=== PATIENT | female | born 1955 | race American Indian/Alaskan Native ===

== ENCOUNTER 2019-10-30 13:06 | Inpatient (IN) | payer OTHER ==
[2019-10-30] MEDS ORDERED: SODIUM CHLORIDE 0.9% 1000 ML IV SOLN IV ONE (15:50)
[2019-10-30] MEDS ORDERED: CEFEPIME/NS 2 GM/100 ML 2 GM/100 ML BAG IV ONE (15:52)
--- NOTE | 2019-10-30 15:52 | Emergency Department Report ---
ED Fever HPI - General Chief Complaint: Weakness Stated Complaint: FLU SX Time Seen by Provider: 10/30/19 15:46 Source: patient, EMS Exam Limitations: no limitations - History of Present Illness Initial Comments: Patient is a 64-year-old female that presents emergency room with complaints of body aches, fever, flulike symptoms, fatigue and malaise 3 days. Patient states her symptoms are worsening. Patient states that she feels weak. Patient states she did not get a flu shot this year. Patient states she has a cough but is nonproductive. Timing/Duration: constant Fever Severity/Quality: subjective Fever Therapy [employer]: Ibuprofen, Tylenol Associated Symptoms: cough, muscle aches, shortness of breath, weakness. denies: abdominal pain, chest pain, confusion, diaphoresis, nausea/vomiting, rash, stiff neck, syncope ED Review of Systems ROS: Stated complaint: FLU SX Other details as noted in HPI Constitutional: chills, fever, malaise, weakness Eyes: denies: eye pain, eye discharge, vision change ENT: congestion. denies: ear pain, throat pain Respiratory: cough. denies: shortness of breath, wheezing Cardiovascular: denies: chest pain, palpitations Endocrine: no symptoms reported Gastrointestinal: denies: abdominal pain, nausea, diarrhea Genitourinary: denies: urgency, dysuria, discharge Musculoskeletal: denies: back pain, joint swelling, arthralgia Skin: denies: rash, lesions Neurological: denies: headache, weakness, paresthesias Psychiatric: denies: anxiety, depression Hematological/Lymphatic: denies: easy bleeding, easy bruising ED Past Medical Hx - Past Medical History Previous Medical History?: No - Surgical History Past Surgical History?: No - Family History Family history: no significant - Social History Smoking Status: Current Every Day Smoker Substance Use Type: None ED Physical Exam - General Limitations: No Limitations General appearance: alert, in no apparent distress - Head Head exam: Present: atraumatic, normocephalic - Eye Eye exam: Present: normal appearance - ENT ENT exam: Present: mucous membranes moist - Neck Neck exam: Present: normal inspection - Respiratory Respiratory exam: Present: rhonchi - Cardiovascular Cardiovascular Exam: Present: regular rate, normal rhythm. Absent: systolic murmur, diastolic murmur, rubs, gallop - GI/Abdominal GI/Abdominal exam: Present: soft, normal bowel sounds - Extremities Exam Extremities exam: Present: normal inspection - Back Exam Back exam: Present: normal inspection - Neurological Exam Neurological exam: Present: alert, oriented X3 - Psychiatric Psychiatric exam: Present: normal affect, normal mood - Skin Skin exam: Present: warm, dry, intact, normal color. Absent: rash ED Course Vital Signs 10/30/19 10/30/19 10/30/19 15:28 15:46 18:18 Temperature 101.8 F H 101.6 F H Pulse Rate 99 H 82 Respiratory 34 H 24 22 Rate Blood Pressure Blood Pressure 99/64 112/64 [Right] O2 Sat by Pulse 94 94 94 Oximetry 10/30/19 10/30/19 10/30/19 19:15 20:15 20:30 Temperature 100.4 F H Pulse Rate 81 80 82 Respiratory 30 H 20 30 H Rate Blood Pressure Blood Pressure 129/81 127/70 132/65 [Right] O2 Sat by Pulse 90 91 95 Oximetry 10/30/19 10/30/19 10/30/19 20:47 21:00 21:16 Temperature Pulse Rate 96 H 78 83 Respiratory 35 H 32 H 34 H Rate Blood Pressure 126/63 126/63 Blood Pressure [Right] O2 Sat by Pulse 96 96 98 Oximetry 10/30/19 10/30/19 10/30/19 21:30 21:46 22:00 Temperature Pulse Rate 78 83 79 Respiratory 33 H 40 H 33 H Rate Blood Pressure 126/63 126/63 122/65 Blood Pressure [Right] O2 Sat by Pulse 95 94 93 Oximetry 10/30/19 10/30/19 10/30/19 22:16 22:30 22:46 Temperature Pulse Rate 78 79 82 Respiratory 28 H 27 H 37 H Rate Blood Pressure 122/65 122/65 122/65 Blood Pressure [Right] O2 Sat by Pulse 94 92 91 Oximetry - Reevaluation(s) Reevaluation #1: Initial evaluation done. Patient found to have a blood pressure less than 100. And a heart rate of 104. Patient will be given fluids.. 10/30/19 15:50 Reevaluation #2: Patient's blood pressure is currently 138/70. Patient's heart rate is 90. Patient less fatigue she says. 10/30/19 16:40 Reevaluation #3: Discussed all results with patient. I discussed plan of care patient. Patient agrees with plan of care and admission. [facility] be [facility] the [facility]. 10/30/19 17:21 - Consultations Consultation #1: Hospitalist consult for admission. Hospitalist admit patient. 10/30/19 17:21 ED Medical Decision Making - Lab Data Result diagrams: 10/30/19 16:04 10/30/19 16:04 - Radiology Data Radiology results: report reviewed, image reviewed CHEST 1 VIEW INDICATION / CLINICAL INFORMATION: fever, cough. COMPARISON: None available. FINDINGS: SUPPORT DEVICES: None. HEART / MEDIASTINUM: No significant abnormality. LUNGS / PLEURA: There is prominent interstitial markings bilaterally. I suspect this is due to chronic interstitial lung disease. It would be difficult to exclude underlying pneumonia due to the severity of the interstitial lung disease, as well as having no priors for comp arison. No pneumothorax. No significant pleural effusion. ADDITIONAL FINDINGS: No significant additional findings. IMPRESSION: 1. Prominent interstitial disease, presumably chronic. I cannot exclude underlying pneumonia. - Medical Decision Making Patient is a 64-year-old female that presents emergency room with complaints of weakness and fever and flu-like symptoms and cough. Patient found to have a low blood pressure and tachycardia. Patient found to have a pneumonia and UTI. Labs essentially unremarkable except for acute renal insufficiency and failure. Chest x-ray done shows pneumonia. UA done and shows UTI. Patient given antibiotics. Patient given multiple liters of fluid. Patient admitted to the hospitalist service. - Differential Diagnosis sepsis, sirs, pneumonia, cough, fever, UTI, hypotension, tachycardia Critical Care Time: Yes Critical care time in (mins) excluding proc time.: 35 Critical care attestation.: If time is entered above; I have spent that time in minutes in the direct care of this critically ill patient, excluding procedure time. Critical Care Time: 35 minutes ED Disposition Clinical Impression: Dehydration, SIRS (systemic inflammatory response syndrome), Lactic acid acidosis Fever Qualifiers: Fever type: unspecified Qualified Code(s): R50.9 - Fever, unspecified Acute renal failure Qualifiers: Acute renal failure type: unspecified Qualified Code(s): N17.9 - Acute kidney failure, unspecified Pneumonia Qualifiers: Pneumonia type: due to unspecified organism Laterality: unspecified laterality Lung location: unspecified part of lung Qualified Code(s): J18.9 - Pneumonia, unspecified organism Sepsis Qualifiers: Sepsis type: sepsis due to unspecified organism Sepsis acute organ dysfunction status: without acute organ dysfunction Qualified Code(s): A41.9 - Sepsis, unspecified organism UTI (urinary tract infection) Qualifiers: Urinary tract infection type: acute cystitis Hematuria presence: with hematuria Qualified Code(s): N30.01 - Acute cystitis with hematuria Disposition: OP ADMIT IP TO THIS HOSP Is pt being admited?: Yes Does the pt Need Aspirin: No Condition: Critical Time of Disposition: 17:19
[2019-10-30 16:28] LABS: Basophils % (Auto) 0.3 % (0.0-1.8); Eosinophils % (Auto) 0.1 % (0.0-4.3); Hematocrit 52.1 % (30.3-42.9); Hemoglobin 17.1 gm/dl (10.1-14.3); Lymphocytes # (Auto) 0.8 K/mm3 (1.2-5.4); Lymphocytes % (Auto) 15.8 % (13.4-35.0); Mean Corpuscular HGB Conc 33 % (30-34); Mean Corpuscular Volume 93 fl (79-97); Monocytes # (Auto) 0.1 K/mm3 (0.0-0.8); Monocytes % (Auto) 2.5 % (0.0-7.3); Red Blood Count 5.61 M/mm3 (3.65-5.03); Red Cell Distribution Width 13.3 % (13.2-15.2)
[2019-10-30 16:29] LABS: Platelet Count 107 K/mm3 (140-440)
[2019-10-30 16:48] LABS: Albumin 3.7 g/dL (3.9-5)
--- NOTE | 2019-10-30 16:52 | XRay Report ---
CHEST 1 VIEW INDICATION / CLINICAL INFORMATION: fever, cough. COMPARISON: None available. FINDINGS: SUPPORT DEVICES: None. HEART / MEDIASTINUM: No significant abnormality. LUNGS / PLEURA: There is prominent interstitial markings bilaterally. I suspect this is due to chroni c interstitial lung disease. It would be difficult to exclude underlying pneumonia due to the severit y of the interstitial lung disease, as well as having no priors for comparison. No pneumothorax. No s ignificant pleural effusion. ADDITIONAL FINDINGS: No significant additional findings. IMPRESSION: 1. Prominent interstitial disease, presumably chronic. I cannot exclude underlying pneumonia. Signer Name: Virgen Cadet MD Signed: 10/30/2019 4:47 PM Workstation Name: [id number]
[2019-10-30 17:35] LABS: Bacteria,Urine 2+ /HPF (Negative); Bilirubin,Urine NEG (Negative); Blood,Urine SM (Negative); Color,Urine Amber (Yellow); Hyaline Casts,Urine 5 /LPF; Mucus,Urine FEW /HPF
[2019-10-30 17:38] LABS: Protein,Urine >500 mg/dL (Negative); WBC,Urine > 182.0 /HPF (0.0-6.0)
[2019-10-30] MEDS ORDERED: SODIUM CHLORIDE 0.9% 1000 ML 1,000 ML IV ONE (18:00)
[2019-10-30 19:14] LABS: Alanine Aminotransferase 129 units/L (7-56); Albumin 3.9 g/dL (3.9-5)
[2019-10-30] MEDS ORDERED: ONDANSETRON 4 MG/2 ML INJ IV PRN (19:19)
[2019-10-30] MEDS ORDERED: ALBUTEROL 2.5 MG/3 ML NEBU IH PRN (19:19)
--- NOTE | 2019-10-30 19:19 | History and Physical Report ---
History of Present Illness Chief complaint: She's so weak, and she has fever History of present illness: 64 YO Female with Nicotine Dependence presents to ED for evaluation. Pt is confused, with shaking chills, and provides minimal history. Pt history provided by who is at bedside during exam and interview. As per , the patient has experienced "flu like symptoms" over the past 3 days with worsening symptoms over the same time frame. Pt acknowledges fever, shaking chills, fatigue, nonproductive cough, runny nose, and "not having any energy". Pt states that she feels to weak to stand independently. Pt acknowledges suspected flu exposure. Pt denies receiving flu shot this year. EMS notified, and upon arrival the patient was found to be in distress and transported to [facility]. Pt seen and evaluated in ED and found to be confused with Encephalopathy, and ill appearing. Pt found to have SIRS, UTI, Acidosis, and ESTELLE. Pt admitted to medical floor and initiated on IV antibiotic therapy and IVF resuscitation therapy. No reports of CP, Palpitations, Trauma, BRBPR, Skin Rash, Ingestion of food/water from new/different sources, neck pain, or recent ill contacts. NO prior admission for review. No medication listed at time of admission for reconciliation. Past History Past Medical History: other (see HPI) Past Surgical History: No surgical history, Other (reviewed) Social history: , lives with family, smoking. denies: alcohol abuse, prescription drug abuse Family history: hypertension Medications and Allergies Allergies Allergy/AdvReac Type Severity Reaction Status Date / Time No Known Allergies Allergy Unverified 10/30/19 15:52 Exam - Constitutional Vitals: Temp Pulse Resp BP Pulse Ox 101.6 F H 82 22 112/64 94 10/30/19 18:18 10/30/19 18:18 10/30/19 18:18 10/30/19 18:18 10/30/19 18:18 Results - Labs CBC & Chem 7: 10/30/19 16:04 10/30/19 16:04 Labs: Abnormal lab results 10/30/19 10/30/19 10/30/19 Range/Units 16:04 16:04 16:04 RBC 5.61 H (3.65-5.03) M/mm3 Hgb 17.1 H (10.1-14.3) gm/dl Hct 52.1 H (30.3-42.9) % Plt Count 107 L (140-440) K/mm3 Lymph # 0.8 L (1.2-5.4) K/mm3 Seg Neutrophils % 81.3 H (40.0-70.0) % Sodium 132 L (137-145) mmol/L Potassium 3.2 L (3.6-5.0) mmol/L Chloride 96.8 L (98-107) mmol/L Carbon Dioxide 21 L (22-30) mmol/L BUN 28 H (7-17) mg/dL Creatinine 1.7 H (0.7-1.2) mg/dL Glucose 161 H (65-100) mg/dL Lactic Acid 2.50 H* (0.7-2.0) mmol/L Calcium 8.0 L (8.4-10.2) mg/dL AST 441 H (5-40) units/L ALT 129 H (7-56) units/L Albumin 3.7 L (3.9-5) g/dL Urine pH (5.0-7.0) Urine WBC (Auto) (0.0-6.0) /HPF 10/30/19 10/30/19 Range/Units 16:04 17:10 RBC (3.65-5.03) M/mm3 Hgb (10.1-14.3) gm/dl Hct (30.3-42.9) % Plt Count (140-440) K/mm3 Lymph # (1.2-5.4) K/mm3 Seg Neutrophils % (40.0-70.0) % Sodium (137-145) mmol/L Potassium (3.6-5.0) mmol/L Chloride (98-107) mmol/L Carbon Dioxide (22-30) mmol/L BUN (7-17) mg/dL Creatinine (0.7-1.2) mg/dL Glucose (65-100) mg/dL Lactic Acid (0.7-2.0) mmol/L Calcium (8.4-10.2) mg/dL AST 446 H (5-40) units/L ALT 129 H (7-56) units/L Albumin (3.9-5) g/dL Urine pH 8.0 H (5.0-7.0) Urine WBC (Auto) > 182.0 H (0.0-6.0) /HPF Assessment and Plan - Patient Problems (1) SIRS (systemic inflammatory response syndrome) Current Visit: Yes Status: Acute Plan to address problem: IV antibiotic therapy, serial lactic acid, IVF resuscitation therapy, Chest x ray, urinalysis, CBC, CMP, Influenza antigen, Rapid strep screen, legionella antigen, hepatitis panel, (2) ESTELLE (acute kidney injury) Current Visit: Yes Status: Acute Plan to address problem: IVF resuscitation therapy, BMP to monitor serum creatnine, monitor uop q shift, urine electrolytes, repeat bmp in am. (3) Nicotine dependence unspecified, with withdrawal Current Visit: Yes Status: Acute Qualifiers: Nicotine product type: cigarettes Qualified Code(s): F17.213 - Nicotine dependence, cigarettes, with withdrawal Plan to address problem: smoking cessation counseling +15min, supportive care (4) Lactic acid acidosis Current Visit: Yes Status: Acute Plan to address problem: IVF resuscitation therapy, repeat bmp, treat SIRS/UTI (5) UTI (urinary tract infection) Current Visit: Yes Status: Acute Qualifiers: Urinary tract infection type: acute cystitis Hematuria presence: with hematuria Qualified Code(s): N30.01 - Acute cystitis with hematuria Plan to address problem: IV antibiotic therapy, CBC, CMP, Urinalysis, (6) Hyponatremia syndrome Current Visit: Yes Status: Acute Plan to address problem: IVF resuscitation therapy, repeat bmp (7) Elevated LFTs Current Visit: Yes Status: Acute Plan to address problem: Blood alcohol, hepatitis panel, (8) DVT prophylaxis Current Visit: Yes Status: Acute Plan to address problem: SCD to BLE while in bed, prophylactic heparin
[2019-10-30 19:23] LABS: Bilirubin,Direct < 0.2 mg/dL (0-0.2)
[2019-10-30] MEDS ORDERED: VANCOMYCIN/NS 1 GM/250 ML 1 GM/250 ML BAG IV ONE (21:00)
[2019-10-30] MEDS: HEPARIN 5,000 UNIT/1 ML VIAL SUB-Q SCH (21:35)
[2019-10-30] MEDS ORDERED: HEPARIN 5,000 UNIT/1 ML VIAL ONE (21:36)
[2019-10-30] MEDS ORDERED: SODIUM CHLORIDE 0.9% 1000 ML 0 ML ONE (22:02)
[2019-10-31] MEDS ORDERED: IBUPROFEN ORAL LIQD 100 MG/5 ML ORAL.LIQD PO ONE (02:22)
[2019-10-31] MEDS ORDERED: IBUPROFEN ORAL LIQD 100 MG/5 ML ORAL.LIQD ONE (02:27)
[2019-10-31] MEDS ORDERED: ALBUTEROL 2.5 MG/3 ML NEBU IH ONE (03:45)
[2019-10-31] MEDS ORDERED: ALBUTEROL 2.5 MG/3 ML NEBU IH PRN (04:00)
[2019-10-31 09:36] LABS: Basophils % (Auto) 0.5 % (0.0-1.8); Eosinophils % (Auto) 0.1 % (0.0-4.3); Hemoglobin 15.3 gm/dl (10.1-14.3); Lymphocytes % (Auto) 18.7 % (13.4-35.0); Mean Corpuscular HGB Conc 33 % (30-34); Mean Corpuscular Volume 92 fl (79-97); Monocytes # (Auto) 0.2 K/mm3 (0.0-0.8); Red Blood Count 4.98 M/mm3 (3.65-5.03); Red Cell Distribution Width 13.8 % (13.2-15.2)
[2019-10-31 09:51] LABS: Alanine Aminotransferase 91 units/L (7-56); Albumin 3.1 g/dL (3.9-5); BUN/Creatinine Ratio 21; Blood Urea Nitrogen 23 mg/dL (7-17); Calcium 7.6 mg/dL (8.4-10.2); Hemolysis Index 9
[2019-10-31 10:56] LABS: Platelet Count 85 K/mm3 (140-440)
[2019-10-31] MEDS: IPRATROPIUM/ALBUTEROL SULFATE 3 ML AMPUL.NEB IH SCH ×3 (11:23→21:31)
[2019-10-31] MEDS: HEPARIN 5,000 UNIT/1 ML VIAL SUB-Q SCH (11:41)
--- NOTE | 2019-10-31 13:53 | Progress Note ---
Assessment and Plan Assessment and plan: 64 YO Female with Nicotine Dependence presents to ED for evaluation. Pt is confused, with shaking chills, and provides minimal history. Pt history provided by who is at bedside during exam and interview. As per , the patient has experienced "flu like symptoms" over the past 3 days with worsening symptoms over the same time frame. Pt acknowledges fever, shaking chills, fatigue, nonproductive cough, runny nose, and "not having any energy". Pt states that she feels to weak to stand independently. Pt acknowledges suspected flu exposure. Pt denies receiving flu shot this year. EMS notified, and upon arrival the patient was found to be in distress and transported to [facility]. Pt seen and eval uated in ED and found to be confused with Encephalopathy, and ill appearing. Pt found to have SIRS, UTI, Acidosis, and ESTELLE. * Pt admitted to medical floor and initiated on IV antibiotic therapy and IVF resuscitation therapy. No reports of CP, Palpitations, Trauma, BRBPR, Skin Rash, Ingestion of food/water from new/different sources, neck pain, or recent ill contacts. NO prior admission for review. No medication listed at time of admission for reconciliation. Chest x-ray 10/30/2019 IMPRESSION: 1. Prominent interstitial disease, presumably chronic. I cannot exclude underlying pneumonia. Sepsis likely secondary to acute cystitis ESTELLE (acute kidney injury) with acute vasomotor nephropathy Nicotine dependence unspecified, with withdrawal Lactic acid acidosis Hypokalemia Metabolic Encephalopathy Pneumonia UTI (urinary tract infection) Hyponatremia syndrome Elevated LFTs Thrombocytopenia Plan Supportive care Continue Empiric Antibiotics- Cefepime Replace Electrolyte Obtain urine culture and follow Blood culture LFT improving Renal function improving Check sodium level Check Legionella DVT/GI prophy Hold Heparin due to Thrombocytopenia Plan discussed with patient and family History Interval history: Patient seen and examined this morning at the bedside. Patient reports some improvement in symptoms still with some shortness of breath. She denies any chest pain nausea vomiting. Mental status has improved some at this time. Hospitalist Physical - Physical exam Narrative exam: VITAL SIGNS: Reviewed. GENERAL: The patient appears normally developed, mild respiratory distress vital signs as documented. HEAD: No signs of head trauma. EYES: Pupils are equal. Extraocular motions intact. EARS: Hearing grossly intact. MOUTH: Oropharynx is normal. NECK: No adenopathy, no JVD. CHEST: Chest with diminished breath sounds bilaterally. No wheezes, rales, or rhonchi. CARDIAC: Regular rate and rhythm. S1 and S2, without murmurs, gallops, or rubs. VASCULAR: No Edema. Peripheral pulses normal and equal in all extremities. ABDOMEN: Soft, non tender and non distended. No rebound or guarding, and no masses palpated. Bowel Sounds normal. MUSCULOSKELETAL: Good range of motion of all major joints. Extremities without clubbing, cyanosis or edema. NEUROLOGIC EXAM: Alert and oriented x 3 No focal sensory or strength deficits. Speech normal. Follows commands. PSYCHIATRIC: Mood normal. SKIN: Detail exam as documented in skin assessment - Constitutional Vitals: Temp Pulse Resp BP Pulse Ox 99.8 F H 91 H 22 107/63 94 10/31/19 04:00 10/31/19 11:40 10/31/19 11:40 10/31/19 10:52 10/31/19 11:52 Results - Labs CBC & Chem 7: 10/31/19 09:12 10/31/19 09:12 Labs: Laboratory Last Values WBC 5.5 K/mm3 (4.5-11.0) 10/31/19 09:12 RBC 4.98 M/mm3 (3.65-5.03) 10/31/19 09:12 Hgb 15.3 gm/dl (10.1-14.3) H 10/31/19 09:12 Hct 46.0 % (30.3-42.9) H D 10/31/19 09:12 MCV 92 fl (79-97) 10/31/19 09:12 MCH 31 pg (28-32) 10/31/19 09:12 MCHC 33 % (30-34) 10/31/19 09:12 RDW 13.8 % (13.2-15.2) 10/31/19 09:12 Plt Count 85 K/mm3 (140-440) L 10/31/19 09:12 Lymph % (Auto) 18.7 % (13.4-35.0) 10/31/19 09:12 Pope % (Auto) 3.0 % (0.0-7.3) 10/31/19 09:12 Eos % (Auto) 0.1 % (0.0-4.3) 10/31/19 09:12 Baso % (Auto) 0.5 % (0.0-1.8) 10/31/19 09:12 Lymph # 1.0 K/mm3 (1.2-5.4) L 10/31/19 09:12 Pope # 0.2 K/mm3 (0.0-0.8) 10/31/19 09:12 Eos # 0.0 K/mm3 (0.0-0.4) 10/31/19 09:12 Baso # 0.0 K/mm3 (0.0-0.1) 10/31/19 09:12 Seg Neutrophils % 77.7 % (40.0-70.0) H 10/31/19 09:12 Seg Neutrophils # 4.3 K/mm3 (1.8-7.7) 10/31/19 09:12 Sodium 139 mmol/L (137-145) D 10/31/19 09:12 Potassium 3.1 mmol/L (3.6-5.0) L 10/31/19 09:12 Chloride 105.3 mmol/L (98-107) 10/31/19 09:12 Carbon Dioxide 18 mmol/L (22-30) L 10/31/19 09:12 Anion Gap 19 mmol/L 10/31/19 09:12 BUN 23 mg/dL (7-17) H 10/31/19 09:12 Creatinine 1.1 mg/dL (0.7-1.2) 10/31/19 09:12 Estimated GFR > 60 ml/min 10/31/19 09:12 BUN/Creatinine Ratio 21 % 10/31/19 09:12 Glucose 121 mg/dL (65-100) H 10/31/19 09:12 Lactic Acid 1.90 mmol/L (0.7-2.0) 10/30/19 18:35 Calcium 7.6 mg/dL (8.4-10.2) L 10/31/19 09:12 Total Bilirubin 0.40 mg/dL (0.1-1.2) 10/31/19 09:12 Direct Bilirubin < 0.2 mg/dL (0-0.2) 10/30/19 16:04 Indirect Bilirubin 0.1 mg/dL 10/30/19 16:04 AST 298 units/L (5-40) H 10/31/19 09:12 ALT 91 units/L (7-56) H 10/31/19 09:12 Alkaline Phosphatase 83 units/L (35-129) 10/31/19 09:12 Total Protein 5.6 g/dL (6.3-8.2) L 10/31/19 09:12 Albumin 3.1 g/dL (3.9-5) L 10/31/19 09:12 Albumin/Globulin Ratio 1.2 % 10/31/19 09:12 Urine Color Renee (Yellow) 10/30/19 17:10 Urine Turbidity Cloudy (Clear) 10/30/19 17:10 Urine pH 8.0 (5.0-7.0) H 10/30/19 17:10 Ur Specific Grandin 1.018 (1.003-1.030) 10/30/19 17:10 Urine Protein >500 mg/dL (Negative) 10/30/19 17:10 Urine Glucose (UA) Neg mg/dL (Negative) 10/30/19 17:10 Urine Ketones Tr mg/dL (Negative) 10/30/19 17:10 Urine Blood Sm (Negative) 10/30/19 17:10 Urine Nitrite Neg (Negative) 10/30/19 17:10 Urine Bilirubin Neg (Negative) 10/30/19 17:10 Urine Urobilinogen 2.0 mg/dL (<2.0) 10/30/19 17:10 Ur Leukocyte Esterase Tr (Negative) 10/30/19 17:10 Urine WBC (Auto) > 182.0 /HPF (0.0-6.0) H 10/30/19 17:10 Urine RBC (Auto) 3.0 /HPF (0.0-6.0) 10/30/19 17:10 U Epithel Cells (Auto) 3.0 /HPF (0-13.0) 10/30/19 17:10 Urine Bacteria (Auto) 2+ /HPF (Negative) 10/30/19 17:10 Urine WBC Clumps 2+ /HPF 10/30/19 17:10 Hyaline Casts 5 /LPF 10/30/19 17:10 Urine Mucus Few /HPF 10/30/19 17:10 Plasma/Serum Alcohol < 0.01 % (0-0.07) 10/30/19 19:16 Influenza A (Rapid) Negative (Negative) 10/30/19 Unknown Influenza B (Rapid) Negative (Negative) 10/30/19 Unknown Group A Strep Rapid Negative (Negative) 10/30/19 Unknown Active Medications - Current Medications Current Medications: Generic Name Dose Route Start Last Admin Trade Name Freq PRN Reason Stop Dose Admin Acetaminophen 650 mg 10/30/19 19:19 Tylenol PO Q4H PRN Pain MILD(1-3)/Fever >100.5/GAMING Albuterol 2.5 mg 10/31/19 04:00 Proventil IH Q4HRT PRN Shortness Of Breath Albuterol/Ipratropium 1 ampul 10/31/19 08:00 10/31/19 11:23 Duoneb *Not For Prn Use* IH 1 ampul TIDRT MARISOL Administration Heparin Sodium (Porcine) 5,000 unit 10/30/19 22:00 10/31/19 11:41 Heparin SUB-Q 5,000 unit Q12HR MARISOL Administration Ondansetron HCl 4 mg 10/30/19 19:19 Zofran IV Q8H PRN Nausea And Vomiting Pneumococcal Polyvalent Vaccine 0.5 ml 11/01/19 06:00 Pneumovax 23 IM 11/01/19 06:01 .ONCE ONE Sodium Chloride 10 ml 10/30/19 22:00 10/31/19 11:41 Sodium Chloride Flush Syringe 10 Ml IV 10 ml BID MARISOL Administration Sodium Chloride 10 ml 10/30/19 19:19 Sodium Chloride Flush Syringe 10 Ml IV PRN PRN LINE FLUSH
[2019-10-31] MEDS ORDERED: CEFEPIME/NS 1 GM/100 ML 1 GM/100 ML BAG IV SCH (14:00)
[2019-10-31] MEDS ORDERED: SODIUM CHLORIDE 0.9% 1000 ML 1,000 ML IV ONE (14:00)
[2019-10-31] MEDS ORDERED: POTASSIUM CHLORIDE 20 MEQ PACKET PO ONE (15:00)
[2019-10-31] MEDS ORDERED: VANCOMYCIN PHARMACY TO DOSE IV SCH (15:00)
[2019-10-31 15:45] LABS: Amphetamine Screen,Urine PRESUMPTIVE NEGATIVE; Benzodiazepines Screen,Urine PRESUMPTIVE NEGATIVE; Cannabinoid Screen,Urine PRESUMPTIVE NEGATIVE; Cocaine Screen,Urine PRESUMPTIVE NEGATIVE; Methadone Screen,Urine PRESUMPTIVE NEGATIVE; Opiate Screen,Urine PRESUMPTIVE NEGATIVE
[2019-10-31] MEDS: ACETAMINOPHEN 325 MG TAB PO PRN (16:47)
[2019-10-31] MEDS: VANCOMYCIN 750 MG in SODIUM CHLORIDE 0.9% 250ML 250 ML IV SCH (16:47)
[2019-10-31] MEDS: CEFEPIME/NS 2 GM/100 ML 2 GM/100 ML BAG IV SCH (21:51)
[2019-11-01] MEDS: VANCOMYCIN 750 MG in SODIUM CHLORIDE 0.9% 250ML 250 ML IV SCH ×2 (03:54→19:05)
[2019-11-01] MEDS ORDERED: FLU VACC QUAD 2019-20 (3 YR UP)/PF 60 MCG/0.5 ML SYRINGE IM ONE ×2 (06:00→12:00)
[2019-11-01] MEDS ORDERED: PNEUMOCOCCAL 23 Valent 0.5 ML VIAL IM ONE ×2 (06:00→12:00)
[2019-11-01] MEDS: CEFEPIME/NS 2 GM/100 ML 2 GM/100 ML BAG IV SCH ×3 (06:45→22:36)
[2019-11-01] MEDS: IPRATROPIUM/ALBUTEROL SULFATE 3 ML AMPUL.NEB IH SCH ×3 (08:11→21:02)
[2019-11-01 09:31] LABS: Hematocrit 44.2 % (30.3-42.9); Hemoglobin 14.7 gm/dl (10.1-14.3); Mean Corpuscular HGB Conc 33 % (30-34); Mean Corpuscular Volume 91 fl (79-97); Red Blood Count 4.85 M/mm3 (3.65-5.03); Red Cell Distribution Width 13.5 % (13.2-15.2)
[2019-11-01 09:37] LABS: Platelet Count 75 K/mm3 (140-440)
[2019-11-01 10:00] LABS: Alanine Aminotransferase 70 units/L (7-56); Albumin 2.8 g/dL (3.9-5); BUN/Creatinine Ratio 20; Blood Urea Nitrogen 16 mg/dL (7-17); Calcium 8.1 mg/dL (8.4-10.2); Hemolysis Index 30
[2019-11-01] MEDS ORDERED: SODIUM BICARB 8.4% 50 MEQ/50 ML SYRINGE IV ONE (10:22)
[2019-11-01] MEDS ORDERED: MAGNESIUM SULFATE 1 GM in SODIUM CHLORIDE 0.9% 50 ML IV ONE (10:22)
[2019-11-01] MEDS ORDERED: POTASSIUM CHLORIDE ER 20 MEQ TAB PO ONE (10:22)
--- NOTE | 2019-11-01 14:05 | Progress Note ---
Assessment and Plan Assessment and plan: 64 YO Female with Nicotine Dependence presents to ED for evaluation. Pt is confused, with shaking chills, and provides minimal history. Pt history provided by who is at bedside during exam and interview. As per , the patient has experienced "flu like symptoms" over the past 3 days with worsening symptoms over the same time frame. Pt acknowledges fever, shaking chills, fatigue, nonproductive cough, runny nose, and "not having any energy". Pt states that she feels to weak to stand independently. Pt acknowledges suspected flu exposure. Pt denies receiving flu shot this year. EMS notified, and upon arrival the patient was found to be in distress and transported to [facility]. Pt seen and eval uated in ED and found to be confused with Encephalopathy, and ill appearing. Pt found to have SIRS, UTI, Acidosis, and ESTELLE. * Pt admitted to medical floor and initiated on IV antibiotic therapy and IVF resuscitation therapy. No reports of CP, Palpitations, Trauma, BRBPR, Skin Rash, Ingestion of food/water from new/different sources, neck pain, or recent ill contacts. NO prior admission for review. No medication listed at time of admission for reconciliation. * On repeat exam today noted to have mild dysarthria. Will obtain CT scan of the head to rule out any CVA although I do not think there is been a significant change in the last 24 hours. But based on the history that the is not giving me feel that this is warranted. We will also obtain CT abdomen and pelvis to rule out rhabdomyolysis. Physical therapy and Occupational Therapy consult Chest x-ray 10/30/2019 IMPRESSION: 1. Prominent interstitial disease, presumably chronic. I cannot exclude underlying pneumonia. Sepsis likely secondary to acute cystitis ESTELLE (acute kidney injury) with acute vasomotor nephropathy Nicotine dependence unspecified, with withdrawal Lactic acid acidosis Hypokalemia Metabolic Encephalopathy Pneumonia UTI (urinary tract infection) Hyponatremia syndrome Elevated LFTs Thrombocytopenia Plan Supportive care Continue Empiric Antibiotics- Cefepime Replace Electrolyte PTOT CT head and abdomen and pelvis Awaiting cultures for urine. Blood cultures negative at this time. LFT improving Renal function improving Check sodium level Check Legionella DVT/GI prophy Hold Heparin due to Thrombocytopenia Plan discussed with patient and family History Interval history: Patient seen and examined this morning at the bedside. Noted patient to have some dysarthric speech this morning and also abdominal chest breathing. also reports that patient has not been ambulatory for the past few days prior to admission. Denies any fall. He is unable to tell me if this speech is new or old. Patient reports back pain. Hospitalist Physical - Physical exam Narrative exam: VITAL SIGNS: Reviewed. GENERAL: The patient appears normally developed, mild respiratory distress although flushed in appearance with mild dysarthria vital signs as documented. HEAD: No signs of head trauma. EYES: Pupils are equal. Extraocular motions intact. EARS: Hearing grossly intact. MOUTH: Oropharynx is normal. NECK: No adenopathy, no JVD. CHEST: Chest with diminished breath sounds bilaterally. No wheezes, rales, or rhonchi. CARDIAC: Regular rate and rhythm. S1 and S2, without murmurs, gallops, or rubs. VASCULAR: No Edema. Peripheral pulses normal and equal in all extremities. ABDOMEN: Soft, non tender and non distended. No rebound or guarding, and no masses palpated. Bowel Sounds normal. MUSCULOSKELETAL: Good range of motion of all major joints. Extremities without clubbing, cyanosis or edema. NEUROLOGIC EXAM: Alert and oriented x 3 No focal sensory or strength deficits. Dysarthria noted l. Follows commands. PSYCHIATRIC: Mood normal. SKIN: Detail exam as documented in skin assessment - Constitutional Vitals: Temp Pulse Resp BP Pulse Ox 100.1 F H 115 H 32 H 122/64 92 11/01/19 05:09 11/01/19 08:11 11/01/19 08:11 11/01/19 05:09 11/01/19 08:11 Results - Labs CBC & Chem 7: 11/01/19 08:11 11/01/19 08:11 Labs: Laboratory Last Values WBC 6.3 K/mm3 (4.5-11.0) 11/01/19 08:11 RBC 4.85 M/mm3 (3.65-5.03) 11/01/19 08:11 Hgb 14.7 gm/dl (10.1-14.3) H 11/01/19 08:11 Hct 44.2 % (30.3-42.9) H 11/01/19 08:11 MCV 91 fl (79-97) 11/01/19 08:11 MCH 30 pg (28-32) 11/01/19 08:11 MCHC 33 % (30-34) 11/01/19 08:11 RDW 13.5 % (13.2-15.2) 11/01/19 08:11 Plt Count 75 K/mm3 (140-440) L 11/01/19 08:11 Lymph % (Auto) 18.7 % (13.4-35.0) 10/31/19 09:12 [place] % (Auto) 3.0 % (0.0-7.3) 10/31/19 09:12 Eos % (Auto) 0.1 % (0.0-4.3) 10/31/19 09:12 Baso % (Auto) 0.5 % (0.0-1.8) 10/31/19 09:12 Lymph # 1.0 K/mm3 (1.2-5.4) L 10/31/19 09:12 [place] # 0.2 K/mm3 (0.0-0.8) 10/31/19 09:12 Eos # 0.0 K/mm3 (0.0-0.4) 10/31/19 09:12 Baso # 0.0 K/mm3 (0.0-0.1) 10/31/19 09:12 Seg Neutrophils % 77.7 % (40.0-70.0) H 10/31/19 09:12 Seg Neutrophils # 4.3 K/mm3 (1.8-7.7) 10/31/19 09:12 Sodium 142 mmol/L (137-145) 11/01/19 08:11 Potassium 3.2 mmol/L (3.6-5.0) L 11/01/19 08:11 Chloride 109.9 mmol/L (98-107) H 11/01/19 08:11 Carbon Dioxide 16 mmol/L (22-30) L 11/01/19 08:11 Anion Gap 19 mmol/L 11/01/19 08:11 BUN 16 mg/dL (7-17) 11/01/19 08:11 Creatinine 0.8 mg/dL (0.7-1.2) 11/01/19 08:11 Estimated GFR > 60 ml/min 11/01/19 08:11 BUN/Creatinine Ratio 20 % 11/01/19 08:11 Glucose 137 mg/dL (65-100) H 11/01/19 08:11 Lactic Acid 1.90 mmol/L (0.7-2.0) 10/30/19 18:35 Calcium 8.1 mg/dL (8.4-10.2) L 11/01/19 08:11 Total Bilirubin 0.40 mg/dL (0.1-1.2) 11/01/19 08:11 Direct Bilirubin < 0.2 mg/dL (0-0.2) 10/30/19 16:04 Indirect Bilirubin 0.1 mg/dL 10/30/19 16:04 AST 198 units/L (5-40) H 11/01/19 08:11 ALT 70 units/L (7-56) H 11/01/19 08:11 Alkaline Phosphatase 91 units/L (35-129) 11/01/19 08:11 Total Protein 5.4 g/dL (6.3-8.2) L 11/01/19 08:11 Albumin 2.8 g/dL (3.9-5) L 11/01/19 08:11 Albumin/Globulin Ratio 1.1 % 11/01/19 08:11 Urine Color Renee (Yellow) 10/30/19 17:10 Urine Turbidity Cloudy (Clear) 10/30/19 17:10 Urine pH 8.0 (5.0-7.0) H 10/30/19 17:10 Ur Specific [place] 1.018 (1.003-1.030) 10/30/19 17:10 Urine Protein >500 mg/dL (Negative) 10/30/19 17:10 Urine Glucose (UA) Neg mg/dL (Negative) 10/30/19 17:10 Urine Ketones Tr mg/dL (Negative) 10/30/19 17:10 Urine Blood Sm (Negative) 10/30/19 17:10 Urine Nitrite Neg (Negative) 10/30/19 17:10 Urine Bilirubin Neg (Negative) 10/30/19 17:10 Urine Urobilinogen 2.0 mg/dL (<2.0) 10/30/19 17:10 Ur Leukocyte Esterase Tr (Negative) 10/30/19 17:10 Urine WBC (Auto) > 182.0 /HPF (0.0-6.0) H 10/30/19 17:10 Urine RBC (Auto) 3.0 /HPF (0.0-6.0) 10/30/19 17:10 U Epithel Cells (Auto) 3.0 /HPF (0-13.0) 10/30/19 17:10 Urine Bacteria (Auto) 2+ /HPF (Negative) 10/30/19 17:10 Urine WBC Clumps 2+ /HPF 10/30/19 17:10 Hyaline Casts 5 /LPF 10/30/19 17:10 Urine Mucus Few /HPF 10/30/19 17:10 Urine Opiates Screen Presumptive negative 10/31/19 15:05 Urine Methadone Screen Presumptive negative 10/31/19 15:05 Ur Barbiturates Screen Presumptive negative 10/31/19 15:05 Ur Phencyclidine Scrn Presumptive negative 10/31/19 15:05 Ur Amphetamines Screen Presumptive negative 10/31/19 15:05 U Benzodiazepines Scrn Presumptive negative 10/31/19 15:05 Urine Cocaine Screen Presumptive negative 10/31/19 15:05 U Marijuana (THC) Screen Presumptive negative 10/31/19 15:05 Drugs of Abuse Note Disclamer 10/31/19 15:05 Plasma/Serum Alcohol < 0.01 % (0-0.07) 10/30/19 19:16 Influenza A (Rapid) Negative (Negative) 10/30/19 Unknown Influenza B (Rapid) Negative (Negative) 10/30/19 Unknown Group A Strep Rapid Negative (Negative) 10/30/19 Unknown Active Medications - Current Medications Current Medications: Generic Name Dose Route Start Last Admin Trade Name Freq PRN Reason Stop Dose Admin Acetaminophen 650 mg 10/30/19 19:19 10/31/19 16:47 Tylenol PO 650 mg Q4H PRN Administration Pain MILD(1-3)/Fever >100.5/GAMING Albuterol 2.5 mg 10/31/19 04:00 Proventil IH Q4HRT PRN Shortness Of Breath Albuterol/Ipratropium 1 ampul 10/31/19 08:00 11/01/19 08:11 Duoneb *Not For Prn Use* IH 1 ampul TIDRT MARISOL Administration Cefepime HCl 2 gm in 100 mls @ 200 mls/hr 10/31/19 22:00 11/01/19 06:45 Cefepime/Ns 2 Gm/100 Ml IV 200 mls/hr Q8HR MARISOL Administration Vancomycin HCl 750 mg/ Sodium 265 mls @ 166.667 mls/hr 10/31/19 15:00 11/01/19 03:54 Chloride IV 166.667 mls/hr Q12H MARISOL Administration Potassium Chloride 10 meq in 100 mls @ 100 mls/hr 11/01/19 11:00 Kcl 10meq/100ml IV 11/01/19 14:59 Q1H MARISOL Ondansetron HCl 4 mg 10/30/19 19:19 Zofran IV Q8H PRN Nausea And Vomiting Sodium Chloride 10 ml 10/30/19 22:00 10/31/19 21:51 Sodium Chloride Flush Syringe 10 Ml IV 10 ml BID MARISOL Administration Sodium Chloride 10 ml 10/30/19 19:19 Sodium Chloride Flush Syringe 10 Ml IV PRN PRN LINE FLUSH
[2019-11-01] MEDS: POTASSIUM CHLORIDE 10 MEQ 10 MEQ/100 ML BAG IV SCH ×4 (15:03→19:10)
--- NOTE | 2019-11-01 21:30 | Cat Scan Report ---
CT abdomen pelvis wo con INDICATION: abdominal pain. TECHNIQUE: All CT scans at this location are performed using CT dose reduction for ALARA by means of automated e xposure control. COMPARISON: None available. FINDINGS: Very extensive bibasilar lung disease. Small stones in the gallbladder. Liver, spleen, pancreas, kidneys and adrenals are grossly negative o n this noncontrast exam. Pelvis Urinary bladder and distal ureters appear negative. No free fluid or inflammatory change. Normal appe ndix. No significant bowel abnormalities. Osteopenia but no acute skeletal lesions. IMPRESSION: 1. . Extensive lung disease 2. Small stones in the gallbladder, with no CT evidence of cholecystitis. 3. No definite acute intra-abdominal abnormalities. Signer Name: Pablo Dorantes MD Signed: 11/01/2019 9:26 PM Workstation Name: [id number]
--- NOTE | 2019-11-01 21:30 | Cat Scan Report ---
CT head/brain wo con INDICATION / CLINICAL INFORMATION: 64 years Female; dysathria. TECHNIQUE: Routine CT head without contrast. All CT scans at this location are performed using CT dos e reduction for ALARA by means of automated exposure control. COMPARISON: None. FINDINGS: BRAIN / INTRACRANIAL CONTENTS: No acute hemorrhage, mass effect, midline shift, hydrocephalus, or acu te, large territorial infarct. No chronic infarct or atrophy appreciated. No significant white matter abnormality. CRANIOCERVICAL JUNCTION: No significant abnormality. ORBITS: No significant abnormality of visualized orbits. SINUSES / MASTOIDS: There is mild mucosal thickening in the mastoid air cells on the right. ADDITIONAL FINDINGS: None. IMPRESSION: 1. No focal mass, hemorrhage, hydrocephalus, or acute, large territorial infarct. Signer Name: Irving Valentino MD, III Signed: 11/01/2019 9:26 PM Workstation Name: [id number]
[2019-11-02] MEDS: VANCOMYCIN 750 MG in SODIUM CHLORIDE 0.9% 250ML 250 ML IV SCH ×2 (03:04→15:21)
[2019-11-02] MEDS: CEFEPIME/NS 2 GM/100 ML 2 GM/100 ML BAG IV SCH ×3 (05:34→21:46)
[2019-11-02 07:35] LABS: Alanine Aminotransferase 53 units/L (7-56); BUN/Creatinine Ratio 20; Blood Urea Nitrogen 14 mg/dL (7-17); Calcium 8.1 mg/dL (8.4-10.2)
[2019-11-02 07:36] LABS: Albumin 2.6 g/dL (3.9-5); Hemolysis Index 1
[2019-11-02] MEDS: IPRATROPIUM/ALBUTEROL SULFATE 3 ML AMPUL.NEB IH SCH ×3 (08:13→21:07)
[2019-11-02] MEDS ORDERED: POTASSIUM CHLORIDE ER 20 MEQ TAB PO ONE ×2 (09:00→12:00)
[2019-11-02 09:08] LABS: Hematocrit 42.9 % (30.3-42.9); Hemoglobin 14.3 gm/dl (10.1-14.3); Mean Corpuscular HGB Conc 33 % (30-34); Mean Corpuscular Volume 90 fl (79-97); Platelet Count 80 K/mm3 (140-440); Red Blood Count 4.77 M/mm3 (3.65-5.03); Red Cell Distribution Width 13.4 % (13.2-15.2)
--- NOTE | 2019-11-02 10:28 | Cat Scan Report ---
CTA CHEST WITH IV CONTRAST INDICATION: shortness of breath. TECHNIQUE: Axial CT images were obtained through the chest after injection of 100 mL IV contrast. 3 plane MIP re constructions were produced. All CT scans at this location are performed using CT dose reduction for ALARA by means of automated exposure control. COMPARISON: None available. FINDINGS: PULMONARY ARTERIES: No pulmonary emboli. AORTA AND ARTERIES: No acute abnormality. MEDIASTINUM: Shotty nodes are present throughout the mediastinum. The heart is normal in size without a pericardial effusion. The trachea and main bronchi are patent and normal in caliber. LUNGS there is severe and extensive reticulonodular opacities throughout both lungs these interstitia l changes are present bilaterally and predominantly upper lobe. There are tiny bilateral pleural effu sions and extensive consolidation throughout much of the left lower lung. Exam is somewhat limited se condary to respiratory motion artifact. ADDITIONAL FINDINGS: None. UPPER ABDOMEN: No acute findings. BONES: No significant osseous abnormality. IMPRESSION: 1. No CT evidence for pulmonary embolism. 2. Severe and extensive reticulonodular opacities throughout both lungs with consolidation of the lef t lower lung and tiny pleural effusions. Overall the findings are nonspecific and could be secondary to diffuse pulmonary carcinomatosis versus severe atypical infection Signer Name: Dale Diaz MD Signed: 11/02/2019 10:23 AM Workstation Name: [id number]
[2019-11-02] MEDS ORDERED: PNEUMOCOCCAL 23 Valent 0.5 ML VIAL IM ONE (12:00)
[2019-11-02] MEDS ORDERED: FLU VACC QUAD 2019-20 (3 YR UP)/PF 60 MCG/0.5 ML SYRINGE IM ONE (12:00)
--- NOTE | 2019-11-02 17:50 | Progress Note ---
Assessment and Plan Assessment and plan: 64 YO Female with Nicotine Dependence presents to ED for evaluation. Pt is confused, with shaking chills, and provides minimal history. Pt history provided by who is at bedside during exam and interview. As per , the patient has experienced "flu like symptoms" over the past 3 days with worsening symptoms over the same time frame. Pt acknowledges fever, shaking chills, fatigue, nonproductive cough, runny nose, and "not having any energy". Pt states that she feels to weak to stand independently. Pt acknowledges suspected flu exposure. Pt denies receiving flu shot this year. EMS notified, and upon arrival the patient was found to be in distress and transported to [facility]. Pt seen and eval uated in ED and found to be confused with Encephalopathy, and ill appearing. Pt found to have SIRS, UTI, Acidosis, and ESTELLE. * Pt admitted to medical floor and initiated on IV antibiotic therapy and IVF resuscitation therapy. No reports of CP, Palpitations, Trauma, BRBPR, Skin Rash, Ingestion of food/water from new/different sources, neck pain, or recent ill contacts. NO prior admission for review. No medication listed at time of admission for reconciliation. * On repeat exam today noted to have mild dysarthria. Will obtain CT scan of the head to rule out any CVA although I do not think there is been a significant change in the last 24 hours. But based on the history that the is not giving me feel that this is warranted. We will also obtain CT abdomen and pelvis to rule out rhabdomyolysis. Physical therapy and Occupational Therapy consult Chest x-ray 10/30/2019 IMPRESSION: 1. Prominent interstitial disease, presumably chronic. I cannot exclude underlying pneumonia. CTA chest: IMPRESSION: 1. No CT evidence for pulmonary embolism. 2. Severe and extensive reticulonodular opacities throughout both lungs with consolidation of the left lower lung and tiny pleural effusions. Overall the findings are nonspecific and could be secondary to diffuse pulmonary carcinomatosis versus severe atypical infection Sepsis likely secondary to acute cystitis ESTELLE (acute kidney injury) with acute vasomotor nephropathy Nicotine dependence unspecified, with withdrawal Lactic acid acidosis Metabolic acidosis Hypokalemia Metabolic Encephalopathy Pneumonia UTI (urinary tract infection) Hyponatremia syndrome Elevated LFTs Thrombocytopenia 64 y/o female with abnormal CXR and CT of chest, no PE now with worsening respiratory failure. 1. Overall prognosis is guarded. Plan Supportive care IV steroids started Autoimmune work-up in progress Continue Empiric Antibiotics- Cefepime Replace Electrolyte PTOT CT head and abdomen and pelvis Awaiting cultures for urine. Blood cultures negative at this time. LFT improving Per pulmonary consultation * Differential is broad given the patter. Patient would benefit from HRCT but would like to get oxygen requirement down first. She is already on broad spec abx therapy so will start steroids at 60q6. May even consider pulse dose steroids in the next 24-36 hours. Possible diagnosis include, RBILD, DIP, AIP(very high mortality) and possible NSIP. She will need autoimmune work up . Will order TOMAS, RF and ESR right now. Will need SCL-70, anti centromere, TOMAS panel, anticcp. Most likely these labs are send outs at this hospital. If able to get patient well enough, she will need open lung biopsy for adequate diagnosis but this is not the appropriate time. If she does decompensate (which she is at a high risk for) would intubate, start on Solumedrol 1 gram IV q24 for 3 doses and consider transfer to possible biopsy to either [facility] or [facility]. The latter that I just described I did not discuss with the patient. I did speak to them about biopsy. I expressed that smoking cessation is imperative and that she must not return back to smoking. Renal function improving Check sodium level Check Legionella DVT/GI prophy Hold Heparin due to Thrombocytopenia Plan discussed with patient and family The high probability of a clinically significant, sudden or life threatening deterioration of the [PULMOANRY] system(s) required my full and direct attention, intervention and personal management. The aggregate critical care time was [35] minutes. This time is in addition to time spent performing reported procedures but includes the following: [X] Data Review and interpretation [X] Patient assessment and monitoring of vital signs [X] Documentation [X] Medication orders and management History Interval history: Patient seen and examined this morning, patient overnight had hypoxic episodes requiring high flow oxygen started. Overall work of breathing is improved. Previously noted abdominal long dyssynchrony is improved. But still at 80% FiO2. Hospitalist Physical - Physical exam Narrative exam: VITAL SIGNS: Reviewed. GENERAL: The patient appears normally developed, mild respiratory distress, vital signs as documented. HEAD: No signs of head trauma. EYES: Pupils are equal. Extraocular motions intact. EARS: Hearing grossly intact. MOUTH: Oropharynx is normal. NECK: No adenopathy, no JVD. CHEST: Chest with diminished breath sounds bilaterally. No wheezes, rales, or rhonchi. CARDIAC: Regular rate and rhythm. S1 and S2, without murmurs, gallops, or rubs. VASCULAR: No Edema. Peripheral pulses normal and equal in all extremities. ABDOMEN: Soft, non tender and non distended. No rebound or guarding, and no masses palpated. Bowel Sounds normal. MUSCULOSKELETAL: Good range of motion of all major joints. Extremities without clubbing, cyanosis or edema. NEUROLOGIC EXAM: Alert and oriented x 3 No focal sensory or strength deficits. Speech is normal today follows commands. PSYCHIATRIC: Mood normal. SKIN: Detail exam as documented in skin assessment - Constitutional Vitals: Temp Pulse Resp BP Pulse Ox 97.0 F L 105 H 28 H 114/82 89 11/02/19 12:27 11/02/19 13:38 11/02/19 13:38 11/02/19 12:27 11/02/19 13:41 Results - Labs CBC & Chem 7: 11/02/19 05:20 11/02/19 05:20 Labs: Laboratory Last Values WBC 6.4 K/mm3 (4.5-11.0) 11/02/19 05:20 RBC 4.77 M/mm3 (3.65-5.03) 11/02/19 05:20 Hgb 14.3 gm/dl (10.1-14.3) 11/02/19 05:20 Hct 42.9 % (30.3-42.9) 11/02/19 05:20 MCV 90 fl (79-97) 11/02/19 05:20 MCH 30 pg (28-32) 11/02/19 05:20 MCHC 33 % (30-34) 11/02/19 05:20 RDW 13.4 % (13.2-15.2) 11/02/19 05:20 Plt Count 80 K/mm3 (140-440) L 11/02/19 05:20 Lymph % (Auto) 18.7 % (13.4-35.0) 10/31/19 09:12 [place] % (Auto) 3.0 % (0.0-7.3) 10/31/19 09:12 Eos % (Auto) 0.1 % (0.0-4.3) 10/31/19 09:12 Baso % (Auto) 0.5 % (0.0-1.8) 10/31/19 09:12 Lymph # 1.0 K/mm3 (1.2-5.4) L 10/31/19 09:12 [place] # 0.2 K/mm3 (0.0-0.8) 10/31/19 09:12 Eos # 0.0 K/mm3 (0.0-0.4) 10/31/19 09:12 Baso # 0.0 K/mm3 (0.0-0.1) 10/31/19 09:12 Seg Neutrophils % 77.7 % (40.0-70.0) H 10/31/19 09:12 Seg Neutrophils # 4.3 K/mm3 (1.8-7.7) 10/31/19 09:12 POC ABG pH 7.452 (7.35-7.45) H 11/02/19 09:06 POC ABG pCO2 28.5 (35-45) L 11/02/19 09:06 POC ABG pO2 53 (80-105) L 11/02/19 09:06 POC ABG HCO3 19.9 (22-26 mml/L) 11/02/19 09:06 POC ABG Total CO2 21 (23-27mmol/L) 11/02/19 09:06 POC ABG O2 Sat 89 11/02/19 09:06 POC ABG Base Excess -4 ((-2) - (+3)mmol/L) 11/02/19 09:06 FiO2 80 % 11/02/19 09:06 Sodium 142 mmol/L (137-145) 11/02/19 05:20 Potassium 3.4 mmol/L (3.6-5.0) L 11/02/19 05:20 Chloride 108.8 mmol/L (98-107) H 11/02/19 05:20 Carbon Dioxide 18 mmol/L (22-30) L 11/02/19 05:20 Anion Gap 19 mmol/L 11/02/19 05:20 BUN 14 mg/dL (7-17) 11/02/19 05:20 Creatinine 0.7 mg/dL (0.7-1.2) 11/02/19 05:20 Estimated GFR > 60 ml/min 11/02/19 05:20 BUN/Creatinine Ratio 20 % 11/02/19 05:20 Glucose 135 mg/dL (65-100) H 11/02/19 05:20 Lactic Acid 1.90 mmol/L (0.7-2.0) 10/30/19 18:35 Calcium 8.1 mg/dL (8.4-10.2) L 11/02/19 05:20 Total Bilirubin 0.30 mg/dL (0.1-1.2) 11/02/19 05:20 Direct Bilirubin < 0.2 mg/dL (0-0.2) 10/30/19 16:04 Indirect Bilirubin 0.1 mg/dL 10/30/19 16:04 AST 120 units/L (5-40) H 11/02/19 05:20 ALT 53 units/L (7-56) 11/02/19 05:20 Alkaline Phosphatase 94 units/L (35-129) 11/02/19 05:20 Total Protein 5.3 g/dL (6.3-8.2) L 11/02/19 05:20 Albumin 2.6 g/dL (3.9-5) L 11/02/19 05:20 Albumin/Globulin Ratio 1.0 % 11/02/19 05:20 Urine Color Renee (Yellow) 10/30/19 17:10 Urine Turbidity Cloudy (Clear) 10/30/19 17:10 Urine pH 8.0 (5.0-7.0) H 10/30/19 17:10 Ur Specific [place] 1.018 (1.003-1.030) 10/30/19 17:10 Urine Protein >500 mg/dL (Negative) 10/30/19 17:10 Urine Glucose (UA) Neg mg/dL (Negative) 10/30/19 17:10 Urine Ketones Tr mg/dL (Negative) 10/30/19 17:10 Urine Blood Sm (Negative) 10/30/19 17:10 Urine Nitrite Neg (Negative) 10/30/19 17:10 Urine Bilirubin Neg (Negative) 10/30/19 17:10 Urine Urobilinogen 2.0 mg/dL (<2.0) 10/30/19 17:10 Ur Leukocyte Esterase Tr (Negative) 10/30/19 17:10 Urine WBC (Auto) > 182.0 /HPF (0.0-6.0) H 10/30/19 17:10 Urine RBC (Auto) 3.0 /HPF (0.0-6.0) 10/30/19 17:10 U Epithel Cells (Auto) 3.0 /HPF (0-13.0) 10/30/19 17:10 Urine Bacteria (Auto) 2+ /HPF (Negative) 10/30/19 17:10 Urine WBC Clumps 2+ /HPF 10/30/19 17:10 Hyaline Casts 5 /LPF 10/30/19 17:10 Urine Mucus Few /HPF 10/30/19 17:10 Urine Opiates Screen Presumptive negative 10/31/19 15:05 Urine Methadone Screen Presumptive negative 10/31/19 15:05 Ur Barbiturates Screen Presumptive negative 10/31/19 15:05 Ur Phencyclidine Scrn Presumptive negative 10/31/19 15:05 Ur Amphetamines Screen Presumptive negative 10/31/19 15:05 U Benzodiazepines Scrn Presumptive negative 10/31/19 15:05 Urine Cocaine Screen Presumptive negative 10/31/19 15:05 U Marijuana (THC) Screen Presumptive negative 10/31/19 15:05 Drugs of Abuse Note Disclamer 10/31/19 15:05 Plasma/Serum Alcohol < 0.01 % (0-0.07) 10/30/19 19:16 Influenza A (Rapid) Negative (Negative) 10/30/19 Unknown Influenza B (Rapid) Negative (Negative) 10/30/19 Unknown Group A Strep Rapid Negative (Negative) 10/30/19 Unknown Active Medications - Current Medications Current Medications: Generic Name Dose Route Start Last Admin Trade Name Freq PRN Reason Stop Dose Admin Acetaminophen 650 mg 10/30/19 19:19 10/31/19 16:47 Tylenol PO 650 mg Q4H PRN Administration Pain MILD(1-3)/Fever >100.5/GAMING Albuterol 2.5 mg 10/31/19 04:00 Proventil IH Q4HRT PRN Shortness Of Breath Albuterol/Ipratropium 1 ampul 10/31/19 08:00 11/02/19 13:38 Duoneb *Not For Prn Use* IH 1 ampul TIDRT MARISOL Administration Cefepime HCl 2 gm in 100 mls @ 200 mls/hr 10/31/19 22:00 11/02/19 15:17 Cefepime/Ns 2 Gm/100 Ml IV 200 mls/hr Q8HR MARISOL Administration Vancomycin HCl 750 mg/ Sodium 265 mls @ 166.667 mls/hr 10/31/19 15:00 11/02/19 15:21 Chloride IV 166.667 mls/hr Q12H MARISOL Administration Methylprednisolone Sodium Succinate 60 mg 11/02/19 18:00 Solu-Medrol IV Q6HR MARISOL Ondansetron HCl 4 mg 10/30/19 19:19 Zofran IV Q8H PRN Nausea And Vomiting Sodium Chloride 10 ml 10/30/19 22:00 11/02/19 12:14 Sodium Chloride Flush Syringe 10 Ml IV 10 ml BID MARISOL Administration Sodium Chloride 10 ml 10/30/19 19:19 Sodium Chloride Flush Syringe 10 Ml IV PRN PRN LINE FLUSH
--- NOTE | 2019-11-02 18:05 | Consultation ---
History of Present Illness Consult date: 11/02/19 Requesting physician: JONELLE ESPINAL Reason for consult: hypoxemia, abnormal CXR/CT History of present illness: 64 y/o female admitted 3 days ago with fever malaise and body aches. Flu swab negative. Apparent smoker. Over night developed worsening hypoxemia and was placed on HFNC. had a CTA done this am that shows diffuse scarring vs reticulonodular pattern with left lower lobe infiltrate. Pulmonary consulted se condary to these things. Patient is a smoker for the past 40+ years. Quit Friday. States that she got acutely ill over the weekend but has had a cough for several weeks and has had progressive worsening shortness of breath. She has never had a CXR before now and does not follow up with the Dr. Regularly. Remainder is negative. Past History Past Medical History: other (see HPI) Past Surgical History: No surgical history, Other (reviewed) Social history: , lives with family, smoking. denies: alcohol abuse, prescription drug abuse Family history: cancer (mother with liver carcinoma), diabetes (fater), hypertension Medications and Allergies Allergies Allergy/AdvReac Type Severity Reaction Status Date / Time No Known Allergies Allergy Unverified 10/30/19 15:52 Home Medications Medication Instructions Recorded Confirmed Last Taken Type No Known Home Medications [No 10/31/19 10/31/19 Unknown History Reported Home Medications] Active Meds: Active Medications Acetaminophen (Tylenol) 650 mg PO Q4H PRN PRN Reason: Pain MILD(1-3)/Fever >100.5/GAMING Last Admin: 10/31/19 16:47 Dose: 650 mg Documented by: Albuterol (Proventil) 2.5 mg IH Q4HRT PRN PRN Reason: Shortness Of Breath Albuterol/Ipratropium (Duoneb *Not For Prn Use*) 1 ampul IH TIDRT [facility] Last Admin: 11/02/19 13:38 Dose: 1 ampul Documented by: Cefepime HCl (Cefepime/Ns 2 Gm/100 Ml) 2 gm in 100 mls @ 200 mls/hr IV Q8HR [facility] Last Admin: 11/02/19 15:17 Dose: 200 mls/hr Documented by: Vancomycin HCl 750 mg/ Sodium (Chloride) 265 mls @ 166.667 mls/hr IV Q12H [facility] Last Admin: 11/02/19 15:21 Dose: 166.667 mls/hr Documented by: Methylprednisolone Sodium Succinate (Solu-Medrol) 60 mg IV Q6HR [facility] Ondansetron HCl (Zofran) 4 mg IV Q8H PRN PRN Reason: Nausea And Vomiting Sodium Chloride (Sodium Chloride Flush Syringe 10 Ml) 10 ml IV BID [facility] Last Admin: 11/02/19 12:14 Dose: 10 ml Documented by: Sodium Chloride (Sodium Chloride Flush Syringe 10 Ml) 10 ml IV PRN PRN PRN Reason: LINE FLUSH Review of Systems All systems: negative Physical Examination Vital signs: Vital Signs Temp Pulse Resp BP Pulse Ox 101.8 F H 99 H 34 H 99/64 94 10/30/19 15:28 10/30/19 15:28 10/30/19 15:28 10/30/19 15:28 10/30/19 15:28 General appearance: appears uncomfortable, other (mild distress) Eyes: icteric ENT: oropharynx moist, other (very poor dentition) Neck: supple Effort: mildly labored Ascultation: Bilateral: rales, rhonchi Percussion: Bilateral: not dull Tactile fremitus: Bilateral: normal Cardiovascular: other (tachy but sinus) Gastrointestinal: normoactive bowel sounds, soft Extremities: no edema Musculoskeletal: no deformities normal mental status Results - Laboratory Findings CBC and BMP: 11/02/19 05:20 11/02/19 05:20 ABG POC ABG pH 7.452 (7.35-7.45) H 11/02/19 09:06 POC ABG pCO2 28.5 (35-45) L 11/02/19 09:06 POC ABG pO2 53 (80-105) L 11/02/19 09:06 POC ABG HCO3 19.9 (22-26 mml/L) 11/02/19 09:06 POC ABG Total CO2 21 (23-27mmol/L) 11/02/19 09:06 POC ABG O2 Sat 89 11/02/19 09:06 Abnormal lab findings: Abnormal Labs 10/30/19 10/30/19 10/30/19 16:04 16:04 16:04 RBC 5.61 H Hgb 17.1 H Hct 52.1 H Plt Count 107 L Lymph # 0.8 L Seg Neutrophils % 81.3 H POC ABG pH POC ABG pCO2 POC ABG pO2 Sodium 132 L Potassium 3.2 L Chloride 96.8 L Carbon Dioxide 21 L BUN 28 H Creatinine 1.7 H Glucose 161 H Lactic Acid 2.50 H* Calcium 8.0 L AST 441 H ALT 129 H Total Protein Albumin 3.7 L Urine pH Urine WBC (Auto) 10/30/19 10/30/19 10/31/19 16:04 17:10 09:12 RBC Hgb 15.3 H Hct 46.0 H D Plt Count 85 L Lymph # 1.0 L Seg Neutrophils % 77.7 H POC ABG pH POC ABG pCO2 POC ABG pO2 Sodium Potassium Chloride Carbon Dioxide BUN Creatinine Glucose Lactic Acid Calcium AST 446 H ALT 129 H Total Protein Albumin Urine pH 8.0 H Urine WBC (Auto) > 182.0 H 10/31/19 11/01/19 11/01/19 09:12 08:11 08:11 RBC Hgb 14.7 H Hct 44.2 H Plt Count 75 L Lymph # Seg Neutrophils % POC ABG pH POC ABG pCO2 POC ABG pO2 Sodium Potassium 3.1 L 3.2 L Chloride 109.9 H Carbon Dioxide 18 L 16 L BUN 23 H Creatinine Glucose 121 H 137 H Lactic Acid Calcium 7.6 L 8.1 L AST 298 H 198 H ALT 91 H 70 H Total Protein 5.6 L 5.4 L Albumin 3.1 L 2.8 L Urine pH Urine WBC (Auto) 11/02/19 11/02/19 11/02/19 05:20 05:20 09:06 RBC Hgb Hct Plt Count 80 L Lymph # Seg Neutrophils % POC ABG pH 7.452 H POC ABG pCO2 28.5 L POC ABG pO2 53 L Sodium Potassium 3.4 L Chloride 108.8 H Carbon Dioxide 18 L BUN Creatinine Glucose 135 H Lactic Acid Calcium 8.1 L AST 120 H ALT Total Protein 5.3 L Albumin 2.6 L Urine pH Urine WBC (Auto) - Diagnostic Findings Chest x-ray: image reviewed CT scan - chest: image reviewed (I feel this is more scarring as oppose pulmonary carcinomatosis. This could be RBILD, DIP or NSIP) Assessment and Plan 64 y/o female with abnormal CXR and CT of chest, no PE now with worsening respiratory failure. 1. Differential is broad given the patter. Patient would benefit from HRCT but would like to get oxygen requirement down first. She is already on broad spec abx therapy so will start steroids at 60q6. May even consider pulse dose steroids in the next 24-36 hours. Possible diagnosis include, RBILD, DIP, AIP(very high mortality) and possible NSIP. She will need autoimmune work up . Will order TOMAS, RF and ESR right now. Will need SCL-70, anti centromere, TOMAS panel, anticcp. Most likely these labs are send outs at this hospital. If able to get patient well enough, she will need open lung biopsy for adequate diagnosis but this is not the appropriate time. If she does decompensate (which she is at a high risk for) would intubate, start on Solumedrol 1 gram IV q24 for 3 doses and consider transfer to possible biopsy to either [facility] or [facility] [place]. The latter that I just described I did not discuss with the patient. I did speak to them about biopsy. I expressed that smoking cessation is imperative and that she must not return back to smoking. Overall prognosis is guarded.
[2019-11-02] MEDS: methylPREDNISolone Sod Succinate 125 MG/2 ML INJ IV SCH (18:24)
[2019-11-03] MEDS: methylPREDNISolone Sod Succinate 125 MG/2 ML INJ IV SCH ×4 (00:11→18:15)
[2019-11-03] MEDS: VANCOMYCIN 750 MG in SODIUM CHLORIDE 0.9% 250ML 250 ML IV SCH ×2 (02:27→17:30)
[2019-11-03] MEDS: CEFEPIME/NS 2 GM/100 ML 2 GM/100 ML BAG IV SCH ×4 (05:08→21:32)
[2019-11-03 07:28] LABS: Hematocrit 42.1 % (30.3-42.9); Mean Corpuscular HGB Conc 33 % (30-34); Mean Corpuscular Volume 91 fl (79-97); Red Blood Count 4.61 M/mm3 (3.65-5.03); Red Cell Distribution Width 13.6 % (13.2-15.2)
[2019-11-03 07:52] LABS: Platelet Count 96 K/mm3 (140-440)
[2019-11-03 07:56] LABS: BUN/Creatinine Ratio 30; Blood Urea Nitrogen 18 mg/dL (7-17); Calcium 7.9 mg/dL (8.4-10.2); Hemolysis Index 7
[2019-11-03] MEDS ORDERED: FUROSEMIDE 40 MG/4 ML INJ IV ONE (08:30)
[2019-11-03] MEDS: ACETAMINOPHEN 325 MG TAB PO PRN (08:41)
[2019-11-03] MEDS: IPRATROPIUM/ALBUTEROL SULFATE 3 ML AMPUL.NEB IH SCH ×3 (08:54→20:57)
--- NOTE | 2019-11-03 12:43 | Progress Note ---
Assessment and Plan Assessment and plan: 64 YO Female with Nicotine Dependence presents to ED for evaluation. Pt is confused, with shaking chills, and provides minimal history. Pt history provided by who is at bedside during exam and interview. As per , the patient has experienced "flu like symptoms" over the past 3 days with worsening symptoms over the same time frame. Pt acknowledges fever, shaking chills, fatigue, nonproductive cough, runny nose, and "not having any energy". Pt states that she feels to weak to stand independently. Pt acknowledges suspected flu exposure. Pt denies receiving flu shot this year. EMS notified, and upon arrival the patient was found to be in distress and transported to [facility]. Pt seen and eval uated in ED and found to be confused with Encephalopathy, and ill appearing. Pt found to have SIRS, UTI, Acidosis, and ESTELLE. * Pt admitted to medical floor and initiated on IV antibiotic therapy and IVF resuscitation therapy. No reports of CP, Palpitations, Trauma, BRBPR, Skin Rash, Ingestion of food/water from new/different sources, neck pain, or recent ill contacts. NO prior admission for review. No medication listed at time of admission for reconciliation. * On repeat exam today noted to have mild dysarthria. Will obtain CT scan of the head to rule out any CVA although I do not think there is been a significant change in the last 24 hours. But based on the history that the is not giving me feel that this is warranted. We will also obtain CT abdomen and pelvis to rule out rhabdomyolysis. Physical therapy and Occupational Therapy consult Chest x-ray 10/30/2019 IMPRESSION: 1. Prominent interstitial disease, presumably chronic. I cannot exclude underlying pneumonia. CTA chest: IMPRESSION: 1. No CT evidence for pulmonary embolism. 2. Severe and extensive reticulonodular opacities throughout both lungs with consolidation of the left lower lung and tiny pleural effusions. Overall the findings are nonspecific and could be secondary to diffuse pulmonary carcinomatosis versus severe atypical infection Sepsis likely secondary to acute cystitis ESTELLE (acute kidney injury) with acute vasomotor nephropathy Nicotine dependence unspecified, with withdrawal Lactic acid acidosis Metabolic acidosis Hypokalemia Metabolic Encephalopathy Pneumonia UTI (urinary tract infection) Hyponatremia syndrome Elevated LFTs Thrombocytopenia Plan Supportive care IV steroids started and continue tapering as recommended by pulmonary Autoimmune work-up in progress Continue Empiric Antibiotics- Cefepime Replace Electrolyte PTOT CT head and abdomen and pelvis Awaiting cultures for urine. Blood cultures negative at this time. LFT improving Per pulmonary consultation * Differential is broad given the patter. Patient would benefit from HRCT but would like to get oxygen requirement down first. She is already on broad spec abx therapy so will start steroids at 60q6. May even consider pulse dose steroids in the next 24-36 hours. Possible diagnosis include, RBILD, DIP, AIP(very high mortality) and possible NSIP. She will need autoimmune work up . Will order TOMAS, RF and ESR right now. Will need SCL-70, anti centromere, TOMAS panel, anticcp. Most likely these labs are send outs at this hospital. If able to get patient well enough, she will need open lung biopsy for adequate diagnosis but this is not the appropriate time. If she does decompensate (which she is at a high risk for) would intubate, start on Solu medrol 1 gram IV q24 for 3 doses and consider transfer to possible biopsy to either [facility] or [facility]. The latter that I just described I did not discuss with the patient. I did speak to them about biopsy. I expressed that smoking cessation is imperative and that she must not return back to smoking. Renal function improving Check sodium level Check Legionella DVT/GI prophy Hold Heparin due to Thrombocytopenia Plan discussed with patient and family The high probability of a clinically significant, sudden or life threatening deterioration of the [PULMOANRY] system(s) required my full and direct attention, intervention and personal management. The aggregate critical care ti me was [35] minutes. This time is in addition to time spent performing reported procedures but includes the following: [X] Data Review and interpretation [X] Patient assessment and monitoring of vital signs [X] Documentation [X] Medication orders and management History Interval history: Patient seen and examined this morning, Patient overnight had hypoxic episodes requiring high flow oxygen. Overall work of breathing is improved. Previously noted abdominal long dsynchrony is improved. But still at 70% FiO2. at bedside reports that the patient quit smoking just the day prior to presentation to the hospital. [facility] Hospitalist Physical - Physical exam Narrative exam: VITAL SIGNS: Reviewed. GENERAL: The patient appears normally developed, mild respiratory distress, vital signs as documented. HEAD: No signs of head trauma. EYES: Pupils are equal. Extraocular motions intact. EARS: Hearing grossly intact. MOUTH: Oropharynx is normal. NECK: No adenopathy, no JVD. CHEST: Chest with diminished breath sounds bilaterally. No wheezes, rales, or rhonchi. CARDIAC: Regular rate and rhythm. S1 and S2, without murmurs, gallops, or rubs. VASCULAR: No Edema. Peripheral pulses normal and equal in all extremities. ABDOMEN: Soft, non tender and non distended. No rebound or guarding, and no masses palpated. Bowel Sounds normal. MUSCULOSKELETAL: Good range of motion of all major joints. Extremities without clubbing, cyanosis or edema. NEUROLOGIC EXAM: Alert and oriented x 3 No focal sensory or strength deficits. Speech is normal today follows commands. PSYCHIATRIC: Mood normal. SKIN: Detail exam as documented in skin assessment - Constitutional Vitals: Temp Pulse Resp BP Pulse Ox 98.1 F 88 18 126/84 92 11/03/19 12:12 11/03/19 12:12 11/03/19 12:12 11/03/19 12:12 11/03/19 12:12 Results - Labs CBC & Chem 7: 11/03/19 07:03 11/03/19 07:03 Labs: Laboratory Last Values WBC 3.5 K/mm3 (4.5-11.0) L 11/03/19 07:03 RBC 4.61 M/mm3 (3.65-5.03) 11/03/19 07:03 Hgb 14.0 gm/dl (10.1-14.3) 11/03/19 07:03 Hct 42.1 % (30.3-42.9) 11/03/19 07:03 MCV 91 fl (79-97) 11/03/19 07:03 MCH 30 pg (28-32) 11/03/19 07:03 MCHC 33 % (30-34) 11/03/19 07:03 RDW 13.6 % (13.2-15.2) 11/03/19 07:03 Plt Count 96 K/mm3 (140-440) L 11/03/19 07:03 Lymph % (Auto) 18.7 % (13.4-35.0) 10/31/19 09:12 Coffey % (Auto) 3.0 % (0.0-7.3) 10/31/19 09:12 Eos % (Auto) 0.1 % (0.0-4.3) 10/31/19 09:12 Baso % (Auto) 0.5 % (0.0-1.8) 10/31/19 09:12 Lymph # 1.0 K/mm3 (1.2-5.4) L 10/31/19 09:12 Coffey # 0.2 K/mm3 (0.0-0.8) 10/31/19 09:12 Eos # 0.0 K/mm3 (0.0-0.4) 10/31/19 09:12 Baso # 0.0 K/mm3 (0.0-0.1) 10/31/19 09:12 Seg Neutrophils % 77.7 % (40.0-70.0) H 10/31/19 09:12 Seg Neutrophils # 4.3 K/mm3 (1.8-7.7) 10/31/19 09:12 ESR 34 mm/Hr (0-20) 11/02/19 20:45 POC ABG pH 7.452 (7.35-7.45) H 11/02/19 09:06 POC ABG pCO2 28.5 (35-45) L 11/02/19 09:06 POC ABG pO2 53 (80-105) L 11/02/19 09:06 POC ABG HCO3 19.9 (22-26 mml/L) 11/02/19 09:06 POC ABG Total CO2 21 (23-27mmol/L) 11/02/19 09:06 POC ABG O2 Sat 89 11/02/19 09:06 POC ABG Base Excess -4 ((-2) - (+3)mmol/L) 11/02/19 09:06 FiO2 80 % 11/02/19 09:06 Sodium 144 mmol/L (137-145) 11/03/19 07:03 Potassium 3.4 mmol/L (3.6-5.0) L 11/03/19 07:03 Chloride 109.4 mmol/L (98-107) H 11/03/19 07:03 Carbon Dioxide 16 mmol/L (22-30) L 11/03/19 07:03 Anion Gap 22 mmol/L 11/03/19 07:03 BUN 18 mg/dL (7-17) H 11/03/19 07:03 Creatinine 0.6 mg/dL (0.7-1.2) L 11/03/19 07:03 Estimated GFR > 60 ml/min 11/03/19 07:03 BUN/Creatinine Ratio 30 % 11/03/19 07:03 Glucose 169 mg/dL (65-100) H 11/03/19 07:03 Lactic Acid 1.90 mmol/L (0.7-2.0) 10/30/19 18:35 Calcium 7.9 mg/dL (8.4-10.2) L 11/03/19 07:03 Total Bilirubin 0.30 mg/dL (0.1-1.2) 11/02/19 05:20 Direct Bilirubin < 0.2 mg/dL (0-0.2) 10/30/19 16:04 Indirect Bilirubin 0.1 mg/dL 10/30/19 16:04 AST 120 units/L (5-40) H 11/02/19 05:20 ALT 53 units/L (7-56) 11/02/19 05:20 Alkaline Phosphatase 94 units/L (35-129) 11/02/19 05:20 NT-Pro-B Natriuret Pep 2064 pg/mL (0-900) H 11/02/19 17:50 Total Protein 5.3 g/dL (6.3-8.2) L 11/02/19 05:20 Albumin 2.6 g/dL (3.9-5) L 11/02/19 05:20 Albumin/Globulin Ratio 1.0 % 11/02/19 05:20 Urine Color Renee (Yellow) 10/30/19 17:10 Urine Turbidity Cloudy (Clear) 10/30/19 17:10 Urine pH 8.0 (5.0-7.0) H 10/30/19 17:10 Ur Specific [place] 1.018 (1.003-1.030) 10/30/19 17:10 Urine Protein >500 mg/dL (Negative) 10/30/19 17:10 Urine Glucose (UA) Neg mg/dL (Negative) 10/30/19 17:10 Urine Ketones Tr mg/dL (Negative) 10/30/19 17:10 Urine Blood Sm (Negative) 10/30/19 17:10 Urine Nitrite Neg (Negative) 10/30/19 17:10 Urine Bilirubin Neg (Negative) 10/30/19 17:10 Urine Urobilinogen 2.0 mg/dL (<2.0) 10/30/19 17:10 Ur Leukocyte Esterase Tr (Negative) 10/30/19 17:10 Urine WBC (Auto) > 182.0 /HPF (0.0-6.0) H 10/30/19 17:10 Urine RBC (Auto) 3.0 /HPF (0.0-6.0) 10/30/19 17:10 U Epithel Cells (Auto) 3.0 /HPF (0-13.0) 10/30/19 17:10 Urine Bacteria (Auto) 2+ /HPF (Negative) 10/30/19 17:10 Urine WBC Clumps 2+ /HPF 10/30/19 17:10 Hyaline Casts 5 /LPF 10/30/19 17:10 Urine Mucus Few /HPF 10/30/19 17:10 Urine Opiates Screen Presumptive negative 10/31/19 15:05 Urine Methadone Screen Presumptive negative 10/31/19 15:05 Ur Barbiturates Screen Presumptive negative 10/31/19 15:05 Ur Phencyclidine Scrn Presumptive negative 10/31/19 15:05 Ur Amphetamines Screen Presumptive negative 10/31/19 15:05 U Benzodiazepines Scrn Presumptive negative 10/31/19 15:05 Urine Cocaine Screen Presumptive negative 10/31/19 15:05 U Marijuana (THC) Screen Presumptive negative 10/31/19 15:05 Drugs of Abuse Note Disclamer 10/31/19 15:05 Plasma/Serum Alcohol < 0.01 % (0-0.07) 10/30/19 19:16 Rheumatoid Factor 18 IU/ml (0-13) H 11/02/19 20:45 Influenza A (Rapid) Negative (Negative) 10/30/19 Unknown Influenza B (Rapid) Negative (Negative) 10/30/19 Unknown Group A Strep Rapid Negative (Negative) 10/30/19 Unknown Active Medications - Current Medications Current Medications: Generic Name Dose Route Start Last Admin Trade Name Freq PRN Reason Stop Dose Admin Acetaminophen 650 mg 10/30/19 19:19 11/03/19 08:41 Tylenol PO 650 mg Q4H PRN Administration Pain MILD(1-3)/Fever >100.5/GAMING Albuterol 2.5 mg 10/31/19 04:00 Proventil IH Q4HRT PRN Shortness Of Breath Albuterol/Ipratropium 1 ampul 10/31/19 08:00 11/03/19 08:54 Duoneb *Not For Prn Use* IH 1 ampul TIDRT [facility] Administration Cefepime HCl 2 gm in 100 mls @ 200 mls/hr 10/31/19 22:00 11/03/19 05:08 Cefepime/Ns 2 Gm/100 Ml IV 200 mls/hr Q8HR [facility] Administration Vancomycin HCl 750 mg/ Sodium 265 mls @ 166.667 mls/hr 10/31/19 15:00 02:27 Chloride IV 166.667 mls/hr Q12H [facility] Administration Methylprednisolone Sodium Succinate 60 mg 11/02/19 18:00 11/03/19 05:08 Solu-Medrol IV 60 mg Q6HR [facility] Administration Ondansetron HCl 4 mg 10/30/19 19:19 Zofran IV Q8H PRN Nausea And Vomiting Sodium Chloride 10 ml 10/30/19 22:00 11/02/19 22:00 Sodium Chloride Flush Syringe 10 Ml IV 10 ml BID [facility] Administration Sodium Chloride 10 ml 10/30/19 19:19 Sodium Chloride Flush Syringe 10 Ml IV PRN PRN LINE FLUSH
--- NOTE | 2019-11-03 13:33 | Progress Note ---
Assessment and Plan 64 y/o female with abnormal CXR and CT of chest, no PE now with worsening respiratory failure. 11/03/19: Slightly improved today. Tolerated steroids at current dosing. Will continue 60q6 and reassess again tomorrow. Would not repeat imaging at this moment. Spoke with IMS who diuresed today and I agree with this. Would likely do again tomorrow. BNP was elevated at 2063. Spoke with RT about weaning for sats >88%. 1. Differential is broad given the pattern. Patient would benefit from HRCT but would like to get oxygen requirement down first. She is already on broad spec abx therapy so will start steroids at 60q6. May even consider pulse dose steroids in the next 24-36 hours. Possible diagnosis include, RBILD, DIP, AIP(very high mortality) and possible NSIP. She will need autoimmune work up . Will order TOMAS, RF and ESR right now. Will need SCL-70, anti centromere, TOMAS panel, anticcp. Most likely these labs are send outs at this hospital. If able to get patient well enough, she will need open lung biopsy for adequate diagnosis but this is not the appropriate time. If she does decompensate (which she is at a high risk for) would intubate, start on Solumedrol 1 gram IV q24 for 3 doses and consider transfer to possible biopsy to [facility] or [facility]. The latter that I just described I did not discuss with the patient. I did speak to them about biopsy. I expressed that smoking cessation is imperative and that she must not return back to smoking. Overall prognosis is guarded. Subjective Date of service: 11/03/19 Interval history: No acute events. Breathing is slightly better today. Down to 70% FiO2, still. at 25 LPM Objective Vital Signs - 12hr 11/03/19 11/03/19 11/03/19 01:56 02:00 05:00 Temperature 97.5 F L Pulse Rate Pulse Rate [ Anterior Bilateral Throughout] Respiratory 19 18 Rate Respiratory Rate [Anterior Bilateral Throughout] Blood Pressure 128/75 O2 Sat by Pulse 100 Oximetry 11/03/19 11/03/19 08:00 12:12 Temperature 98.1 F Pulse Rate 88 Pulse Rate [ 96 H Anterior Bilateral Throughout] Respiratory 18 Rate Respiratory 20 Rate [Anterior Bilateral Throughout] Blood Pressure 126/84 O2 Sat by Pulse 100 92 Oximetry Constitutional: appears uncomfortable, other (mild distress) Eyes: icteric ENT: oropharynx moist, other (very poor dentition) Neck: supple Effort: mildly labored Ascultation: Bilateral: rales, rhonchi Percussion: Bilateral: not dull Tactile fremitus: Bilateral: normal Cardiovascular: other (tachy but sinus) Gastrointestinal: normoactive bowel sounds, soft Extremities: no edema Neurologic: normal mental status CBC and BMP: 11/03/19 07:03 11/03/19 07:03 ABG, PT/INR, D-dimer: ABG POC ABG pH 7.452 (7.35-7.45) H 11/02/19 09:06 POC ABG pCO2 28.5 (35-45) L 11/02/19 09:06 POC ABG pO2 53 (80-105) L 11/02/19 09:06 POC ABG HCO3 19.9 (22-26 mml/L) 11/02/19 09:06 POC ABG Total CO2 21 (23-27mmol/L) 11/02/19 09:06 POC ABG O2 Sat 89 11/02/19 09:06 Abnormal lab findings: Abnormal Labs 10/30/19 10/30/19 10/30/19 16:04 16:04 16:04 WBC RBC 5.61 H Hgb 17.1 H Hct 52.1 H Plt Count 107 L Lymph # 0.8 L Seg Neutrophils % 81.3 H POC ABG pH POC ABG pCO2 POC ABG pO2 Sodium 132 L Potassium 3.2 L Chloride 96.8 L Carbon Dioxide 21 L BUN 28 H Creatinine 1.7 H Glucose 161 H Lactic Acid 2.50 H* Calcium 8.0 L AST 441 H ALT 129 H NT-Pro-B Natriuret Pep Total Protein Albumin 3.7 L Urine pH Urine WBC (Auto) Rheumatoid Factor 10/30/19 10/30/19 10/31/19 16:04 17:10 09:12 WBC RBC Hgb 15.3 H Hct 46.0 H D Plt Count 85 L Lymph # 1.0 L Seg Neutrophils % 77.7 H POC ABG pH POC ABG pCO2 POC ABG pO2 Sodium Potassium Chloride Carbon Dioxide BUN Creatinine Glucose Lactic Acid Calcium AST 446 H ALT 129 H NT-Pro-B Natriuret Pep Total Protein Albumin Urine pH 8.0 H Urine WBC (Auto) > 182.0 H Rheumatoid Factor 10/31/19 11/01/19 11/01/19 09:12 08:11 08:11 WBC RBC Hgb 14.7 H Hct 44.2 H Plt Count 75 L Lymph # Seg Neutrophils % POC ABG pH POC ABG pCO2 POC ABG pO2 Sodium Potassium 3.1 L 3.2 L Chloride 109.9 H Carbon Dioxide 18 L 16 L BUN 23 H Creatinine Glucose 121 H 137 H Lactic Acid Calcium 7.6 L 8.1 L AST 298 H 198 H ALT 91 H 70 H NT-Pro-B Natriuret Pep Total Protein 5.6 L 5.4 L Albumin 3.1 L 2.8 L Urine pH Urine WBC (Auto) Rheumatoid Factor 11/02/19 11/02/19 11/02/19 05:20 05:20 09:06 WBC RBC Hgb Hct Plt Count 80 L Lymph # Seg Neutrophils % POC ABG pH 7.452 H POC ABG pCO2 28.5 L POC ABG pO2 53 L Sodium Potassium 3.4 L Chloride 108.8 H Carbon Dioxide 18 L BUN Creatinine Glucose 135 H Lactic Acid Calcium 8.1 L AST 120 H ALT NT-Pro-B Natriuret Pep Total Protein 5.3 L Albumin 2.6 L Urine pH Urine WBC (Auto) Rheumatoid Factor 11/02/19 11/02/19 11/03/19 17:50 20:45 07:03 WBC 3.5 L RBC Hgb Hct Plt Count 96 L Lymph # Seg Neutrophils % POC ABG pH POC ABG pCO2 POC ABG pO2 Sodium Potassium Chloride Carbon Dioxide BUN Creatinine Glucose Lactic Acid Calcium AST ALT NT-Pro-B Natriuret Pep 2064 H Total Protein Albumin Urine pH Urine WBC (Auto) Rheumatoid Factor 18 H 11/03/19 07:03 WBC RBC Hgb Hct Plt Count Lymph # Seg Neutrophils % POC ABG pH POC ABG pCO2 POC ABG pO2 Sodium Potassium 3.4 L Chloride 109.4 H Carbon Dioxide 16 L BUN 18 H Creatinine 0.6 L Glucose 169 H Lactic Acid Calcium 7.9 L AST ALT NT-Pro-B Natriuret Pep Total Protein Albumin Urine pH Urine WBC (Auto) Rheumatoid Factor
[2019-11-03] MEDS: BENZONATATE 100 MG CAP PO SCH (21:32)
[2019-11-04] MEDS: methylPREDNISolone Sod Succinate 125 MG/2 ML INJ IV SCH ×4 (00:34→18:48)
[2019-11-04] MEDS: VANCOMYCIN 750 MG in SODIUM CHLORIDE 0.9% 250ML 250 ML IV SCH (03:06)
[2019-11-04] MEDS: BENZONATATE 100 MG CAP PO SCH ×3 (05:31→22:09)
[2019-11-04] MEDS: CEFEPIME/NS 2 GM/100 ML 2 GM/100 ML BAG IV SCH ×3 (05:31→22:12)
[2019-11-04 05:34] LABS: BUN/Creatinine Ratio 38; Blood Urea Nitrogen 23 mg/dL (7-17); Calcium 7.9 mg/dL (8.4-10.2); Hemolysis Index 3
[2019-11-04] MEDS: IPRATROPIUM/ALBUTEROL SULFATE 3 ML AMPUL.NEB IH SCH ×3 (07:32→21:07)
[2019-11-04] MEDS ORDERED: POTASSIUM CHLORIDE ER 20 MEQ TAB PO ONE (07:48)
[2019-11-04] MEDS ORDERED: FUROSEMIDE 40 MG/4 ML INJ IV ONE (07:48)
--- NOTE | 2019-11-04 07:52 | Progress Note ---
Assessment and Plan Assessment and plan: 64 YO Female with Nicotine Dependence presents to ED for evaluation. Pt is confused, with shaking chills, and provides minimal history. Pt history provided by who is at bedside during exam and interview. As per , the patient has experienced "flu like symptoms" over the past 3 days with worsening symptoms over the same time frame. Pt acknowledges fever, shaking chills, fatigue, nonproductive cough, runny nose, and "not having any energy". Pt states that she feels to weak to stand independently. Pt acknowledges suspected flu exposure. Pt denies receiving flu shot this year. EMS notified, and upon arrival the patient was found to be in distress and transported to [facility]. Pt seen and eval uated in ED and found to be confused with Encephalopathy, and ill appearing. Pt found to have SIRS, UTI, Acidosis, and ESTELLE. * Pt admitted to medical floor and initiated on IV antibiotic therapy and IVF resuscitation therapy. No reports of CP, Palpitations, Trauma, BRBPR, Skin Rash, Ingestion of food/water from new/different sources, neck pain, or recent ill contacts. NO prior admission for review. No medication listed at time of admission for reconciliation. * On repeat exam today noted to have mild dysarthria. Will obtain CT scan of the head to rule out any CVA although I do not think there is been a significant change in the last 24 hours. But based on the history that the is not giving me feel that this is warranted. We will also obtain CT abdomen and pelvis to rule out rhabdomyolysis. Physical therapy and Occupational Therapy consult * Continues on High flow oxygen but tapering down, started on Lasix which has shown some improvement but with Electrolyte issues. Will replace Chest x-ray 10/30/2019 IMPRESSION: 1. Prominent interstitial disease, presumably chronic. I cannot exclude underlying pneumonia. CTA chest: IMPRESSION: 1. No CT evidence for pulmonary embolism. 2. Severe and extensive reticulonodular opacities throughout both lungs with consolidation of the left lower lung and tiny pleural effusions. Overall the findings are nonspecific and could be secondary to diffuse pulmonary carcinomatosis versus se tayo atypical infection Sepsis likely secondary to acute cystitis ESTELLE (acute kidney injury) with acute vasomotor nephropathy Nicotine dependence unspecified, with withdrawal Lactic acid acidosis Metabolic acidosis Hypokalemia Metabolic Encephalopathy Pneumonia UTI (urinary tract infection) Hyponatremia syndrome Elevated LFTs Thrombocytopenia Plan Supportive care IV steroids started and slow tapering as recommended by pulmonary Give lasix again today. Autoimmune work-up in progress Continue Empiric Antibiotics- Cefepime- stop Vancomycin no growth in 4 days Replace Electrolyte PTOT CT head and abdomen and pelvis Awaiting cultures for urine. Blood cultures negative at this time. LFT improving Per pulmonary consultation * Differential is broad given the patter. Patient would benefit from HRCT but would like to get oxygen requirement down first. She is already on broad spec abx therapy so will start steroids at 60q6. May even consider pulse dose steroids in the next 24-36 hours. Possible diagnosis include, RBILD, DIP, AIP(very high mortality) and possible NSIP. She will need autoimmune work up . Will order TOMAS, RF and ESR right now. Will need SCL-70, anti centromere, TOMAS panel, anticcp. Most likely these labs are send outs at this hospital. If able to get patient well enough, she will need open lung biopsy for adequate diagnosis but this is not the appropriate time. If she does decompensate (which she is at a high risk for) would intubate, start on So lumedrol 1 gram IV q24 for 3 doses and consider transfer to possible biopsy to either [facility] or [facility]. The latter that I just described I did not discuss with the patient. I did speak to them about biopsy. I expressed that smoking cessation is imperative and that she must not return back to smoking. Renal function improving Check sodium level Check Legionella DVT/GI prophy Hold Heparin due to Thrombocytopenia Plan discussed with patient and family Clinically stable for now but still needs inpatient stay due to HFNC. History Interval history: Patient seen and examined this morning, Patient overnight had hypoxic episodes requiring high flow oxygen. Overall work of breathing is improved. Previously noted abdominal long dsynchrony is improved. But still at 60% FiO2. at bedside reports that the patient quit smoking just the day prior to presentation to the hospital. They actually had a scheduled appointment with [facility] physician. Hospitalist Physical - Physical exam Narrative exam: VITAL SIGNS: Reviewed. GENERAL: The patient appears normally developed, mild respiratory distress, vital signs as documented. HEAD: No signs of head trauma. EYES: Pupils are equal. Extraocular motions intact. EARS: Hearing grossly intact. MOUTH: Oropharynx is normal. NECK: No adenopathy, no JVD. CHEST: Chest with diminished breath sounds bilaterally. No wheezes, rales, or rhonchi. CARDIAC: Regular rate and rhythm. S1 and S2, without murmurs, gallops, or rubs. VASCULAR: No Edema. Peripheral pulses normal and equal in all extremities. ABDOMEN: Soft, non tender and non distended. No rebound or guarding, and no masses palpated. Bowel Sounds normal. MUSCULOSKELETAL: Good range of motion of all major joints. Extremities without clubbing, cyanosis or edema. NEUROLOGIC EXAM: Alert and oriented x 3 No focal sensory or strength deficits. Speech is normal today follows commands. PSYCHIATRIC: Mood normal. SKIN: Detail exam as documented in skin assessment - Constitutional Vitals: Temp Pulse Resp BP Pulse Ox 98.5 F 100 H 26 H 135/82 94 11/04/19 06:09 11/04/19 07:49 11/04/19 07:49 11/04/19 06:09 11/04/19 07:35 Results - Labs CBC & Chem 7: 11/03/19 07:03 11/04/19 04:41 Labs: Laboratory Last Values WBC 3.5 K/mm3 (4.5-11.0) L 11/03/19 07:03 RBC 4.61 M/mm3 (3.65-5.03) 11/03/19 07:03 Hgb 14.0 gm/dl (10.1-14.3) 11/03/19 07:03 Hct 42.1 % (30.3-42.9) 11/03/19 07:03 MCV 91 fl (79-97) 11/03/19 07:03 MCH 30 pg (28-32) 11/03/19 07:03 MCHC 33 % (30-34) 11/03/19 07:03 RDW 13.6 % (13.2-15.2) 11/03/19 07:03 Plt Count 96 K/mm3 (140-440) L 11/03/19 07:03 Lymph % (Auto) 18.7 % (13.4-35.0) 10/31/19 09:12 [place] % (Auto) 3.0 % (0.0-7.3) 10/31/19 09:12 Eos % (Auto) 0.1 % (0.0-4.3) 10/31/19 09:12 Baso % (Auto) 0.5 % (0.0-1.8) 10/31/19 09:12 Lymph # 1.0 K/mm3 (1.2-5.4) L 10/31/19 09:12 [place] # 0.2 K/mm3 (0.0-0.8) 10/31/19 09:12 Eos # 0.0 K/mm3 (0.0-0.4) 10/31/19 09:12 Baso # 0.0 K/mm3 (0.0-0.1) 10/31/19 09:12 Seg Neutrophils % 77.7 % (40.0-70.0) H 10/31/19 09:12 Seg Neutrophils # 4.3 K/mm3 (1.8-7.7) 10/31/19 09:12 ESR 34 mm/Hr (0-20) 11/02/19 20:45 POC ABG pH 7.452 (7.35-7.45) H 11/02/19 09:06 POC ABG pCO2 28.5 (35-45) L 11/02/19 09:06 POC ABG pO2 53 (80-105) L 11/02/19 09:06 POC ABG HCO3 19.9 (22-26 mml/L) 11/02/19 09:06 POC ABG Total CO2 21 (23-27mmol/L) 11/02/19 09:06 POC ABG O2 Sat 89 11/02/19 09:06 POC ABG Base Excess -4 ((-2) - (+3)mmol/L) 11/02/19 09:06 FiO2 80 % 11/02/19 09:06 Sodium 143 mmol/L (137-145) 11/04/19 04:41 Potassium 3.0 mmol/L (3.6-5.0) L 11/04/19 04:41 Chloride 106.7 mmol/L (98-107) 11/04/19 04:41 Carbon Dioxide 19 mmol/L (22-30) L 11/04/19 04:41 Anion Gap 20 mmol/L 11/04/19 04:41 BUN 23 mg/dL (7-17) H 11/04/19 04:41 Creatinine 0.6 mg/dL (0.7-1.2) L 11/04/19 04:41 Estimated GFR > 60 ml/min 11/04/19 04:41 BUN/Creatinine Ratio 38 % 11/04/19 04:41 Glucose 174 mg/dL (65-100) H 11/04/19 04:41 Lactic Acid 1.90 mmol/L (0.7-2.0) 10/30/19 18:35 Calcium 7.9 mg/dL (8.4-10.2) L 11/04/19 04:41 Total Bilirubin 0.30 mg/dL (0.1-1.2) 11/02/19 05:20 Direct Bilirubin < 0.2 mg/dL (0-0.2) 10/30/19 16:04 Indirect Bilirubin 0.1 mg/dL 10/30/19 16:04 AST 120 units/L (5-40) H 11/02/19 05:20 ALT 53 units/L (7-56) 11/02/19 05:20 Alkaline Phosphatase 94 units/L (35-129) 11/02/19 05:20 NT-Pro-B Natriuret Pep 2064 pg/mL (0-900) H 11/02/19 17:50 Total Protein 5.3 g/dL (6.3-8.2) L 11/02/19 05:20 Albumin 2.6 g/dL (3.9-5) L 11/02/19 05:20 Albumin/Globulin Ratio 1.0 % 11/02/19 05:20 Urine Color Renee (Yellow) 10/30/19 17:10 Urine Turbidity Cloudy (Clear) 10/30/19 17:10 Urine pH 8.0 (5.0-7.0) H 10/30/19 17:10 Ur Specific [place] 1.018 (1.003-1.030) 10/30/19 17:10 Urine Protein >500 mg/dL (Negative) 10/30/19 17:10 Urine Glucose (UA) Neg mg/dL (Negative) 10/30/19 17:10 Urine Ketones Tr mg/dL (Negative) 10/30/19 17:10 Urine Blood Sm (Negative) 10/30/19 17:10 Urine Nitrite Neg (Negative) 10/30/19 17:10 Urine Bilirubin Neg (Negative) 10/30/19 17:10 Urine Urobilinogen 2.0 mg/dL (<2.0) 10/30/19 17:10 Ur Leukocyte Esterase Tr (Negative) 10/30/19 17:10 Urine WBC (Auto) > 182.0 /HPF (0.0-6.0) H 10/30/19 17:10 Urine RBC (Auto) 3.0 /HPF (0.0-6.0) 10/30/19 17:10 U Epithel Cells (Auto) 3.0 /HPF (0-13.0) 10/30/19 17:10 Urine Bacteria (Auto) 2+ /HPF (Negative) 10/30/19 17:10 Urine WBC Clumps 2+ /HPF 10/30/19 17:10 Hyaline Casts 5 /LPF 10/30/19 17:10 Urine Mucus Few /HPF 10/30/19 17:10 Vancomycin Trough 9.7 ug/mL (5.0-20.0) 11/03/19 14:27 Urine Opiates Screen Presumptive negative 10/31/19 15:05 Urine Methadone Screen Presumptive negative 10/31/19 15:05 Ur Barbiturates Screen Presumptive negative 10/31/19 15:05 Ur Phencyclidine Scrn Presumptive negative 10/31/19 15:05 Ur Amphetamines Screen Presumptive negative 10/31/19 15:05 U Benzodiazepines Scrn Presumptive negative 10/31/19 15:05 Urine Cocaine Screen Presumptive negative 10/31/19 15:05 U Marijuana (THC) Screen Presumptive negative 10/31/19 15:05 Drugs of Abuse Note Disclamer 10/31/19 15:05 Plasma/Serum Alcohol < 0.01 % (0-0.07) 10/30/19 19:16 Rheumatoid Factor 18 IU/ml (0-13) H 11/02/19 20:45 Influenza A (Rapid) Negative (Negative) 10/30/19 Unknown Influenza B (Rapid) Negative (Negative) 10/30/19 Unknown Urine Legionella Ag Not detected (Not Detected) 10/30/19 18:18 Group A Strep Rapid Negative (Negative) 10/30/19 Unknown Active Medications - Current Medications Current Medications: Generic Name Dose Route Start Last Admin Trade Name Freq PRN Reason Stop Dose Admin Acetaminophen 650 mg 10/30/19 19:19 11/03/19 08:41 Tylenol PO 650 mg Q4H PRN Administration Pain MILD(1-3)/Fever >100.5/GAMING Albuterol 2.5 mg 10/31/19 04:00 Proventil IH Q4HRT PRN Shortness Of Breath Albuterol/Ipratropium 1 ampul 10/31/19 08:00 11/04/19 07:32 Duoneb *Not For Prn Use* IH 1 ampul TIDRT MARISOL Administration Benzonatate 100 mg 11/03/19 22:00 11/04/19 05:31 Tessalon Perles PO 100 mg Q8HR MARISOL Administration Furosemide 40 mg 11/04/19 07:48 Lasix IV 11/04/19 07:49 ONCE ONE Cefepime HCl 2 gm in 100 mls @ 200 mls/hr 10/31/19 22:00 11/04/19 05:31 Cefepime/Ns 2 Gm/100 Ml IV 200 mls/hr Q8HR MARISOL Administration Vancomycin HCl 750 mg/ Sodium 265 mls @ 166.667 mls/hr 10/31/19 15:00 11/04/19 03:06 Chloride IV 166.667 mls/hr Q12H MARISOL Administration Potassium Chloride 10 meq in 100 mls @ 100 mls/hr 11/04/19 08:00 Kcl 10meq/100ml IV 11/04/19 11:59 Q1H MARISOL Methylprednisolone Sodium Succinate 60 mg 11/02/19 18:00 11/04/19 05:30 Solu-Medrol IV 60 mg Q6HR MARISOL Administration Ondansetron HCl 4 mg 10/30/19 19:19 Zofran IV Q8H PRN Nausea And Vomiting Potassium Chloride 40 meq 11/04/19 07:48 K-Dur PO 11/04/19 07:49 ONCE ONE Sodium Chloride 10 ml 10/30/19 22:00 11/03/19 21:32 Sodium Chloride Flush Syringe 10 Ml IV 10 ml BID MARISOL Administration Sodium Chloride 10 ml 10/30/19 19:19 Sodium Chloride Flush Syringe 10 Ml IV PRN PRN LINE FLUSH
[2019-11-04] MEDS: POTASSIUM CHLORIDE 10 MEQ 10 MEQ/100 ML BAG IV SCH ×5 (08:28→18:47)
[2019-11-04] MEDS: ACETAMINOPHEN 325 MG TAB PO PRN (14:05)
[2019-11-05] MEDS: methylPREDNISolone Sod Succinate 125 MG/2 ML INJ IV SCH ×4 (00:57→17:32)
[2019-11-05] MEDS: BENZONATATE 100 MG CAP PO SCH ×3 (07:02→21:45)
[2019-11-05 09:12] LABS: BUN/Creatinine Ratio 37; Blood Urea Nitrogen 26 mg/dL (7-17); Calcium 8.3 mg/dL (8.4-10.2); Hemolysis Index 2
--- NOTE | 2019-11-05 13:14 | Progress Note ---
Assessment and Plan Assessment and plan: 64 YO Female with Nicotine Dependence presents to ED for evaluation. Pt is confused, with shaking chills, and provides minimal history. Pt history provided by who is at bedside during exam and interview. As per , the patient has experienced "flu like symptoms" over the past 3 days with worsening symptoms over the same time frame. Pt acknowledges fever, shaking chills, fatigue, nonproductive cough, runny nose, and "not having any energy". Pt states that she feels to weak to stand independently. Pt acknowledges suspected flu exposure. Pt denies receiving flu shot this year. EMS notified, and upon arrival the patient was found to be in distress and transported to [facility]. Pt seen and eval uated in ED and found to be confused with Encephalopathy, and ill appearing. Pt found to have SIRS, UTI, Acidosis, and ESTELLE. * Pt admitted to medical floor and initiated on IV antibiotic therapy and IVF resuscitation therapy. No reports of CP, Palpitations, Trauma, BRBPR, Skin Rash, Ingestion of food/water from new/different sources, neck pain, or recent ill contacts. NO prior admission for review. No medication listed at time of admission for reconciliation. * On repeat exam today noted to have mild dysarthria. Will obtain CT scan of the head to rule out any CVA although I do not think there is been a significant change in the last 24 hours. But based on the history that the is not giving me feel that this is warranted. We will also obtain CT abdomen and pelvis to rule out rhabdomyolysis. Physical therapy and Occupational Therapy consult * Continues on High flow oxygen but tapering down, started on Lasix which has shown some improvement but with Electrolyte issues. Will replace * Patient overnight on 11/05/2019 did experience change in mental status with encephalopathy and confabulation. Urgent CT of the head is ordered to rule out CVA although I think this is less likely this is likely secondary to hypoxic related encephalopathy and steroid-induced encephalopathy. For that reason we will begin to taper steroids more. As patient's oxygen demand is improved. * 3 days of Lasix therapy was given with good improvement noted. We will hold off on Lasix at this time and monitor. Chest x-ray 10/30/2019 IMPRESSION: 1. Prominent interstitial disease, presumably chronic. I cannot exclude underlying pneumonia. CTA chest: IMPRESSION: 1. No CT evidence for pulmonary embolism. 2. Severe and extensive reticulonodular opacities throughout both lungs with consolidation of the left lower lung and tiny pleural effusions. Overall the findings are nonspecific and could be secondary to diffuse pulmonary carcinomatosis versus severe atypical infection Sepsis likely secondary to acute cystitis Acute respiratory failure with hypoxia likely secondary to smoking related lung injury Possible underlining interstitial pulmonary disease versus fibrosis ESTELLE (acute kidney injury) with acute vasomotor nephropathy Nicotine dependence unspecified, with withdrawal Lactic acid acidosis Metabolic acidosis Hypokalemia Metabolic Encephalopathy Pneumonia UTI (urinary tract infection) Hyponatremia syndrome Elevated LFTs Thrombocytopenia Plan Supportive care Continue steroid tapering Obtain CT of the head to rule out CVA Anticipate discharge once patient's oxygen level can be switched to nasal cannula IV steroids started and slow tapering as recommended by pulmonary Autoimmune work-up in progress Continue Empiric Antibiotics- Cefepime- stop Vancomycin no growth in 4 days Replace Electrolyte PTOT CT head and abdomen and pelvis Awaiting cultures for urine. Blood cultures negative at this time. LFT improving Per pulmonary consultation * Differential is broad given the patter. Patient would benefit from HRCT but would like to get oxygen requirement down first. She is already on broad spec abx therapy so will start steroids at 60q6. May even consider pulse dose steroids in the next 24-36 hours. Possible diagnosis include, RBILD, DIP, AIP(very high mortality) and possible NSIP. She will need autoimmune work up . Will order TOMAS, RF and ESR right now. Will need SCL-70, anti centromere, TOMAS panel, anticcp. Most likely these labs are send outs at this hospital. If able to get patient well enough, she will need open lung biopsy for adequate diagnosis but this is not the appropriate time. If she does decompensate (which she is at a high risk for) would intubate, start on Solumedrol 1 gram IV q24 for 3 doses and consider transfer to possible biopsy to either [facility] or [facility]. The latter that I just described I did not discuss with the patient. I did speak to them about biopsy. I expressed that smoking cessation is imperative and that she must not return back to smoking. Renal function improving Check sodium level Check Legionella DVT/GI prophy Hold Heparin due to Thrombocytopenia Plan discussed with patient and family Clinically stable for now but still needs inpatient stay due to HFNC. History Interval history: Patient seen and examined this morning, Overnight patient had an episode of confusion which persisted to this morning. The reports that he woke up and found her confused and without her oxygen on, her oxygen saturation was checked and was in the 70s, improved after she was placed back. Patient denies any chest pain nausea vomiting she did have one episode of loose bowel movement but none since then. Hospitalist Physical - Physical exam Narrative exam: VITAL SIGNS: Reviewed. GENERAL: The patient appears normally developed, mild respiratory distress, vital signs as documented. HEAD: No signs of head trauma. EYES: Pupils are equal. Extraocular motions intact. EARS: Hearing grossly intact. MOUTH: Oropharynx is normal. NECK: No adenopathy, no JVD. CHEST: Chest with diminished breath sounds bilaterally. No wheezes, rales, or rhonchi. CARDIAC: Regular rate and rhythm. S1 and S2, without murmurs, gallops, or rubs. VASCULAR: No Edema. Peripheral pulses normal and equal in all extremities. ABDOMEN: Soft, non tender and non distended. No rebound or guarding, and no masses palpated. Bowel Sounds normal. MUSCULOSKELETAL: Good range of motion of all major joints. Extremities without clubbing, cyanosis or edema. NEUROLOGIC EXAM: Alert and oriented x 2 No focal sensory or strength deficits. Speech is normal, but some confabulation noted. Follows commands. PSYCHIATRIC: Mood normal. SKIN: Detail exam as documented in skin assessment - Constitutional Vitals: Temp Pulse Resp BP Pulse Ox 98.4 F 67 18 134/79 100 11/05/19 11:25 11/05/19 11:25 11/05/19 11:25 11/05/19 11:25 11/05/19 11:25 Results - Labs CBC & Chem 7: 11/03/19 07:03 11/05/19 08:09 Labs: Laboratory Last Values WBC 3.5 K/mm3 (4.5-11.0) L 11/03/19 07:03 RBC 4.61 M/mm3 (3.65-5.03) 11/03/19 07:03 Hgb 14.0 gm/dl (10.1-14.3) 11/03/19 07:03 Hct 42.1 % (30.3-42.9) 11/03/19 07:03 MCV 91 fl (79-97) 11/03/19 07:03 MCH 30 pg (28-32) 11/03/19 07:03 MCHC 33 % (30-34) 11/03/19 07:03 RDW 13.6 % (13.2-15.2) 11/03/19 07:03 Plt Count 96 K/mm3 (140-440) L 11/03/19 07:03 Lymph % (Auto) 18.7 % (13.4-35.0) 10/31/19 09:12 [place] % (Auto) 3.0 % (0.0-7.3) 10/31/19 09:12 Eos % (Auto) 0.1 % (0.0-4.3) 10/31/19 09:12 Baso % (Auto) 0.5 % (0.0-1.8) 10/31/19 09:12 Lymph # 1.0 K/mm3 (1.2-5.4) L 10/31/19 09:12 [place] # 0.2 K/mm3 (0.0-0.8) 10/31/19 09:12 Eos # 0.0 K/mm3 (0.0-0.4) 10/31/19 09:12 Baso # 0.0 K/mm3 (0.0-0.1) 10/31/19 09:12 Seg Neutrophils % 77.7 % (40.0-70.0) H 10/31/19 09:12 Seg Neutrophils # 4.3 K/mm3 (1.8-7.7) 10/31/19 09:12 ESR 34 mm/Hr (0-20) 11/02/19 20:45 POC ABG pH 7.452 (7.35-7.45) H 11/02/19 09:06 POC ABG pCO2 28.5 (35-45) L 11/02/19 09:06 POC ABG pO2 53 (80-105) L 11/02/19 09:06 POC ABG HCO3 19.9 (22-26 mml/L) 11/02/19 09:06 POC ABG Total CO2 21 (23-27mmol/L) 11/02/19 09:06 POC ABG O2 Sat 89 11/02/19 09:06 POC ABG Base Excess -4 ((-2) - (+3)mmol/L) 11/02/19 09:06 FiO2 80 % 11/02/19 09:06 Sodium 140 mmol/L (137-145) 11/05/19 08:09 Potassium 4.0 mmol/L (3.6-5.0) D 11/05/19 08:09 Chloride 104.2 mmol/L (98-107) 11/05/19 08:09 Carbon Dioxide 21 mmol/L (22-30) L 11/05/19 08:09 Anion Gap 19 mmol/L 11/05/19 08:09 BUN 26 mg/dL (7-17) H 11/05/19 08:09 Creatinine 0.7 mg/dL (0.7-1.2) 11/05/19 08:09 Estimated GFR > 60 ml/min 11/05/19 08:09 BUN/Creatinine Ratio 37 % 11/05/19 08:09 Glucose 163 mg/dL (65-100) H 11/05/19 08:09 Lactic Acid 1.90 mmol/L (0.7-2.0) 10/30/19 18:35 Calcium 8.3 mg/dL (8.4-10.2) L 11/05/19 08:09 Total Bilirubin 0.30 mg/dL (0.1-1.2) 11/02/19 05:20 Direct Bilirubin < 0.2 mg/dL (0-0.2) 10/30/19 16:04 Indirect Bilirubin 0.1 mg/dL 10/30/19 16:04 AST 120 units/L (5-40) H 11/02/19 05:20 ALT 53 units/L (7-56) 11/02/19 05:20 Alkaline Phosphatase 94 units/L (35-129) 11/02/19 05:20 NT-Pro-B Natriuret Pep 2064 pg/mL (0-900) H 11/02/19 17:50 Total Protein 5.3 g/dL (6.3-8.2) L 11/02/19 05:20 Albumin 2.6 g/dL (3.9-5) L 11/02/19 05:20 Albumin/Globulin Ratio 1.0 % 11/02/19 05:20 Urine Color Renee (Yellow) 10/30/19 17:10 Urine Turbidity Cloudy (Clear) 10/30/19 17:10 Urine pH 8.0 (5.0-7.0) H 10/30/19 17:10 Ur Specific [place] 1.018 (1.003-1.030) 10/30/19 17:10 Urine Protein >500 mg/dL (Negative) 10/30/19 17:10 Urine Glucose (UA) Neg mg/dL (Negative) 10/30/19 17:10 Urine Ketones Tr mg/dL (Negative) 10/30/19 17:10 Urine Blood Sm (Negative) 10/30/19 17:10 Urine Nitrite Neg (Negative) 10/30/19 17:10 Urine Bilirubin Neg (Negative) 10/30/19 17:10 Urine Urobilinogen 2.0 mg/dL (<2.0) 10/30/19 17:10 Ur Leukocyte Esterase Tr (Negative) 10/30/19 17:10 Urine WBC (Auto) > 182.0 /HPF (0.0-6.0) H 10/30/19 17:10 Urine RBC (Auto) 3.0 /HPF (0.0-6.0) 10/30/19 17:10 U Epithel Cells (Auto) 3.0 /HPF (0-13.0) 10/30/19 17:10 Urine Bacteria (Auto) 2+ /HPF (Negative) 10/30/19 17:10 Urine WBC Clumps 2+ /HPF 10/30/19 17:10 Hyaline Casts 5 /LPF 10/30/19 17:10 Urine Mucus Few /HPF 10/30/19 17:10 Vancomycin Trough 9.7 ug/mL (5.0-20.0) 11/03/19 14:27 Urine Opiates Screen Presumptive negative 10/31/19 15:05 Urine Methadone Screen Presumptive negative 10/31/19 15:05 Ur Barbiturates Screen Presumptive negative 10/31/19 15:05 Ur Phencyclidine Scrn Presumptive negative 10/31/19 15:05 Ur Amphetamines Screen Presumptive negative 10/31/19 15:05 U Benzodiazepines Scrn Presumptive negative 10/31/19 15:05 Urine Cocaine Screen Presumptive negative 10/31/19 15:05 U Marijuana (THC) Screen Presumptive negative 10/31/19 15:05 Drugs of Abuse Note Disclamer 10/31/19 15:05 Plasma/Serum Alcohol < 0.01 % (0-0.07) 10/30/19 19:16 Rheumatoid Factor 18 IU/ml (0-13) H 11/02/19 20:45 Influenza A (Rapid) Negative (Negative) 10/30/19 Unknown Influenza B (Rapid) Negative (Negative) 10/30/19 Unknown Urine Legionella Ag Not detected (Not Detected) 10/30/19 18:18 Group A Strep Rapid Negative (Negative) 10/30/19 Unknown Active Medications - Current Medications Current Medications: Generic Name Dose Route Start Last Admin Trade Name Freq PRN Reason Stop Dose Admin Acetaminophen 650 mg 10/30/19 19:19 11/04/19 14:05 Tylenol PO 650 mg Q4H PRN Administration Pain MILD(1-3)/Fever >100.5/GAMING Albuterol 2.5 mg 10/31/19 04:00 Proventil IH Q4HRT PRN Shortness Of Breath Albuterol/Ipratropium 1 ampul 10/31/19 08:00 11/04/19 21:07 Duoneb *Not For Prn Use* IH 1 ampul TIDRT MARISOL Administration Benzonatate 100 mg 11/03/19 22:00 11/05/19 07:02 Tessalon Perles PO 100 mg Q8HR MARISOL Administration Cefepime HCl 2 gm in 100 mls @ 200 mls/hr 10/31/19 22:00 11/04/19 22:12 Cefepime/Ns 2 Gm/100 Ml IV 11/07/19 23:59 200 mls/hr Q8HR MARISOL Administration Methylprednisolone Sodium Succinate 40 mg 11/05/19 14:00 Solu-Medrol IV Q8HR MARISOL Ondansetron HCl 4 mg 10/30/19 19:19 Zofran IV Q8H PRN Nausea And Vomiting Sodium Chloride 10 ml 10/30/19 22:00 11/05/19 12:08 Sodium Chloride Flush Syringe 10 Ml IV 10 ml BID MARISOL Administration Sodium Chloride 10 ml 10/30/19 19:19 Sodium Chloride Flush Syringe 10 Ml IV PRN PRN LINE FLUSH Zolpidem Tartrate 5 mg 11/05/19 22:00 Ambien PO QHS PRN Sleep Nutrition/Malnutrition Assess - Dietary Evaluation Nutrition/Malnutrition Findings: Nutrition Notes Start: 11/05/19 10:47 Freq: Status: Active Protocol: Document 11/05/19 12:28 CW (Rec: 11/05/19 12:29 CW [email or web address]) Co-Sign 11/05/19 12:28 LP Nutrition Notes Need for Assessment generated from: LOS Initial or Follow up Brief Note Subjective/Other Information Pt. unavailable to be seen twice Nutrition Intervention Follow-Up By: 11/09/19
--- NOTE | 2019-11-05 13:26 | Progress Note ---
Assessment and Plan 64 y/o female with abnormal CXR and CT of chest, no PE now with worsening respiratory failure. 11/05/19: Continue to wean FiO2 as tolerated. Asked IMS to give something for sleep. Will go back up on the steroids. 11/03/19: Slightly improved today. Tolerated steroids at current dosing. Will continue 60q6 and reassess again tomorrow. Would not repeat imaging at this moment. Spoke with IMS who diuresed today and I agree with this. Would likely do again tomorrow. BNP was elevated at 2063. Spoke with RT about weaning for sats >88%. 1. Differential is broad given the pattern. Patient would benefit from HRCT but would like to get oxygen requirement down first. She is already on broad spec abx therapy so will start steroids at 60q6. May even consider pulse dose steroids in the next 24-36 hours. Possible diagnosis include, RBILD, DIP, AIP(very high mortality) and possible NSIP. She will need autoimmune work up . Will order TOMAS, RF and ESR right now. Will need SCL-70, anti centromere, TOMAS panel, anticcp. Most likely these labs are send outs at this hospital. If able to get patient well enough, she will need open lung biopsy for adequate diagnosis but this is not the appropriate time. If she does decompensate (which she is at a high risk for) would intubate, start on Solumedrol 1 gram IV q24 for 3 doses and consider transfer to possible biopsy to either [facility] or [facility]. The latter that I just described I did not discuss with the patient. I did speak to them about biopsy. I expressed that smoking cessation is imperative and that she must not return back to smoking. Overall prognosis is guarded. Subjective Date of service: 11/05/19 Interval history: No acute events. Down to 50% Objective Vital Signs - 12hr 11/05/19 11/05/19 11/05/19 02:11 05:32 08:23 Temperature 98.0 F Pulse Rate 68 Pulse Rate [ 72 Anterior Bilateral Throughout] Respiratory 22 20 Rate Respiratory 18 Rate [Anterior Bilateral Throughout] Blood Pressure 144/70 147/70 O2 Sat by Pulse 92 93 Oximetry 11/05/19 11:25 Temperature 98.4 F Pulse Rate 67 Pulse Rate [ Anterior Bilateral Throughout] Respiratory 18 Rate Respiratory Rate [Anterior Bilateral Throughout] Blood Pressure 134/79 O2 Sat by Pulse 100 Oximetry Constitutional: appears uncomfortable, other (mild distress) Eyes: icteric ENT: oropharynx moist, other (very poor dentition) Neck: supple Effort: mildly labored Ascultation: Bilateral: rales, rhonchi Percussion: Bilateral: not dull Tactile fremitus: Bilateral: normal Cardiovascular: other (tachy but sinus) Gastrointestinal: normoactive bowel sounds, soft Extremities: no edema Neurologic: normal mental status CBC and BMP: 11/03/19 07:03 11/05/19 08:09 ABG, PT/INR, D-dimer: ABG POC ABG pH 7.452 (7.35-7.45) H 11/02/19 09:06 POC ABG pCO2 28.5 (35-45) L 11/02/19 09:06 POC ABG pO2 53 (80-105) L 11/02/19 09:06 POC ABG HCO3 19.9 (22-26 mml/L) 11/02/19 09:06 POC ABG Total CO2 21 (23-27mmol/L) 11/02/19 09:06 POC ABG O2 Sat 89 11/02/19 09:06 Abnormal lab findings: Abnormal Labs 10/30/19 10/30/19 10/30/19 16:04 16:04 16:04 WBC RBC 5.61 H Hgb 17.1 H Hct 52.1 H Plt Count 107 L Lymph # 0.8 L Seg Neutrophils % 81.3 H POC ABG pH POC ABG pCO2 POC ABG pO2 Sodium 132 L Potassium 3.2 L Chloride 96.8 L Carbon Dioxide 21 L BUN 28 H Creatinine 1.7 H Glucose 161 H Lactic Acid 2.50 H* Calcium 8.0 L AST 441 H ALT 129 H NT-Pro-B Natriuret Pep Total Protein Albumin 3.7 L Urine pH Urine WBC (Auto) Rheumatoid Factor 10/30/19 10/30/19 10/31/19 16:04 17:10 09:12 WBC RBC Hgb 15.3 H Hct 46.0 H D Plt Count 85 L Lymph # 1.0 L Seg Neutrophils % 77.7 H POC ABG pH POC ABG pCO2 POC ABG pO2 Sodium Potassium Chloride Carbon Dioxide BUN Creatinine Glucose Lactic Acid Calcium AST 446 H ALT 129 H NT-Pro-B Natriuret Pep Total Protein Albumin Urine pH 8.0 H Urine WBC (Auto) > 182.0 H Rheumatoid Factor 10/31/19 11/01/19 11/01/19 09:12 08:11 08:11 WBC RBC Hgb 14.7 H Hct 44.2 H Plt Count 75 L Lymph # Seg Neutrophils % POC ABG pH POC ABG pCO2 POC ABG pO2 Sodium Potassium 3.1 L 3.2 L Chloride 109.9 H Carbon Dioxide 18 L 16 L BUN 23 H Creatinine Glucose 121 H 137 H Lactic Acid Calcium 7.6 L 8.1 L AST 298 H 198 H ALT 91 H 70 H NT-Pro-B Natriuret Pep Total Protein 5.6 L 5.4 L Albumin 3.1 L 2.8 L Urine pH Urine WBC (Auto) Rheumatoid Factor 11/02/19 11/02/19 11/02/19 05:20 05:20 09:06 WBC RBC Hgb Hct Plt Count 80 L Lymph # Seg Neutrophils % POC ABG pH 7.452 H POC ABG pCO2 28.5 L POC ABG pO2 53 L Sodium Potassium 3.4 L Chloride 108.8 H Carbon Dioxide 18 L BUN Creatinine Glucose 135 H Lactic Acid Calcium 8.1 L AST 120 H ALT NT-Pro-B Natriuret Pep Total Protein 5.3 L Albumin 2.6 L Urine pH Urine WBC (Auto) Rheumatoid Factor 11/02/19 11/02/19 11/03/19 17:50 20:45 07:03 WBC 3.5 L RBC Hgb Hct Plt Count 96 L Lymph # Seg Neutrophils % POC ABG pH POC ABG pCO2 POC ABG pO2 Sodium Potassium Chloride Carbon Dioxide BUN Creatinine Glucose Lactic Acid Calcium AST ALT NT-Pro-B Natriuret Pep 2064 H Total Protein Albumin Urine pH Urine WBC (Auto) Rheumatoid Factor 18 H 11/03/19 11/04/19 11/05/19 07:03 04:41 08:09 WBC RBC Hgb Hct Plt Count Lymph # Seg Neutrophils % POC ABG pH POC ABG pCO2 POC ABG pO2 Sodium Potassium 3.4 L 3.0 L Chloride 109.4 H Carbon Dioxide 16 L 19 L 21 L BUN 18 H 23 H 26 H Creatinine 0.6 L 0.6 L Glucose 169 H 174 H 163 H Lactic Acid Calcium 7.9 L 7.9 L 8.3 L AST ALT NT-Pro-B Natriuret Pep Total Protein Albumin Urine pH Urine WBC (Auto) Rheumatoid Factor
[2019-11-05] MEDS: CEFEPIME/NS 2 GM/100 ML 2 GM/100 ML BAG IV SCH ×3 (13:32→21:45)
[2019-11-05] MEDS ORDERED: methylPREDNISolone Sod Succinate 125 MG/2 ML INJ IV SCH (14:00)
[2019-11-05] MEDS: IPRATROPIUM/ALBUTEROL SULFATE 3 ML AMPUL.NEB IH SCH ×2 (14:08→19:58)
--- NOTE | 2019-11-05 19:30 | Cat Scan Report ---
CT head/brain wo con INDICATION / CLINICAL INFORMATION: 64 years Female; change in mental status. TECHNIQUE: Routine CT head without contrast. All CT scans at this location are performed using CT dos e reduction for ALARA by means of automated exposure control. COMPARISON: 11/01/2019 FINDINGS: BRAIN / INTRACRANIAL CONTENTS: No acute hemorrhage, mass effect, midline shift, hydrocephalus, or acu te, large territorial infarct. No chronic infarct or atrophy appreciated. No significant white matter abnormality. CRANIOCERVICAL JUNCTION: No significant abnormality. ORBITS: No significant abnormality of visualized orbits. SINUSES / MASTOIDS: Minimal mucosal thickening seen in the ethmoids. ADDITIONAL FINDINGS: None. IMPRESSION: 1. No focal mass, hemorrhage, hydrocephalus, or acute, large territorial infarct. Signer Name: Irving Valentino MD, III Signed: 11/05/2019 7:25 PM Workstation Name: [id number]
[2019-11-05] MEDS: QUEtiapine 25 MG TAB PO SCH (21:45)
[2019-11-05] MEDS ORDERED: ZOLPIDEM 5 MG TAB PO PRN (22:00)
[2019-11-06] MEDS: methylPREDNISolone Sod Succinate 125 MG/2 ML INJ IV SCH ×5 (00:49→23:46)
[2019-11-06 05:17] LABS: BUN/Creatinine Ratio 37; Blood Urea Nitrogen 22 mg/dL (7-17); Calcium 8.3 mg/dL (8.4-10.2); Hemolysis Index 18
[2019-11-06] MEDS: BENZONATATE 100 MG CAP PO SCH ×3 (06:20→21:42)
[2019-11-06] MEDS: CEFEPIME/NS 2 GM/100 ML 2 GM/100 ML BAG IV SCH ×3 (06:20→21:42)
[2019-11-06] MEDS: IPRATROPIUM/ALBUTEROL SULFATE 3 ML AMPUL.NEB IH SCH ×3 (09:17→21:42)
[2019-11-06 13:05] LABS: ANA Screen, IFA Negative (Negative)
--- NOTE | 2019-11-06 13:17 | Progress Note ---
Assessment and Plan Sepsis likely secondary to acute cystitis Acute respiratory failure with hypoxia likely secondary to smoking related lung injury Possible underlining interstitial pulmonary disease versus fibrosis ESTELLE (acute kidney injury) with acute vasomotor nephropathy Nicotine dependence unspecified, with withdrawal Lactic acid acidosis Metabolic acidosis Hypokalemia Metabolic Encephalopathy Pneumonia UTI (urinary tract infection) Hyponatremia syndrome Elevated LFTs Thrombocytopenia Plan Supportive care Continue steroid tapering Obtain CT of the head to rule out CVA Anticipate discharge once patient's oxygen level can be switched to nasal ca nnula IV steroids started and slow tapering as recommended by pulmonary Autoimmune work-up in progress Continue Empiric Antibiotics- Cefepime- stop Vancomycin no growth in 4 days Replace Electrolyte PTOT CT head and abdomen and pelvis Awaiting cultures for urine. Blood cultures negative at this time. LFT improving Per pulmonary consultation * Differential is broad given the patter. Patient would benefit from HRCT but would like to get oxygen requirement down first. She is already on broad spec abx therapy so will start steroids at 60q6. May even consider pulse dose steroids in the next 24-36 hours. Possible diagnosis include, RBILD, DIP, AIP(very high mortality) and possible NSIP. She will need autoimmune work up . Will order TOMAS, RF and ESR right now. Will need SCL-70, anti centromere, TOMAS panel, anticcp. Most likely these labs are send outs at this hospital. If able to get patient well enough, she will need open lung biopsy for adequate diagnosis but this is not the appropriate time. If she does decompensate (which she is at a high risk for) would intubate, start on So lumedrol 1 gram IV q24 for 3 doses and consider transfer to possible biopsy to either [facility] or [facility]. The latter that I just described I did not discuss with the patient. I did speak to them about biopsy. I expressed that smoking cessation is imperative and that she must not return back to smoking. Renal function improving Check sodium level Check Legionella DVT/GI prophy Hold Heparin due to Thrombocytopenia Plan discussed with patient and family Clinically stable for now but still needs inpatient stay due to HFNC. Subjective Date of service: 11/06/19 Principal diagnosis: acute respiratory failure, sepsis, ILD, metabolic encephalopathy Interval history: Patient's underlying coronary in bed in no acute distress. by the site. Still on high flow oxygen. Objective - Exam Narrative Exam: Constitutional: Well-nourished well-developed. In no distress Head: Normocephalic atraumatic Eyes: Pupils are equal round and reactive to light Nose: No enlarged turbinates, no septal deviation. Mouth: Moist mucous membranes. Neck: Supple no thyromegaly. No bruit. No JVD Heart: Regular rate and rhythm, S1-S2 normal. No rubs murmurs or gallop Lungs: Decreased breath sounds bilaterally to auscultation bilaterally. no rales or rhonchi Abdomen: Soft, nontender. Bowel sound are present. Extremities: No edema, no cyanosis, no clubbing. Neuro: Alert oriented Oriented x3. No focal sensory or motor deficit. Skin: No rashes or hyperpigmented spots Musculoskeletal system: No joint pain or swelling Hematological: No petechia or subcutanous hemorrhages. Immunological: No multiple septic spots on the skin Lymphatic: No generalized lymphadenopathy Psychiatry: Euthymic. Calm. - Constitutional Vitals: Vital Signs - 12hr 11/06/19 11/06/19 11/06/19 02:00 06:30 09:18 Temperature 98.1 F Pulse Rate 65 Pulse Rate [ Anterior Bilateral Throughout] Respiratory 22 Rate Respiratory Rate [Anterior Bilateral Throughout] Blood Pressure 157/86 O2 Sat by Pulse 95 89 98 Oximetry 11/06/19 09:35 Temperature Pulse Rate Pulse Rate [ 67 Anterior Bilateral Throughout] Respiratory Rate Respiratory 20 Rate [Anterior Bilateral Throughout] Blood Pressure O2 Sat by Pulse Oximetry - Labs CBC & Chem 7: 11/03/19 07:03 11/06/19 04:27 Labs: Abnormal lab results 11/06/19 Range/Units 04:27 Chloride 108.4 H (98-107) mmol/L BUN 22 H (7-17) mg/dL Creatinine 0.6 L (0.7-1.2) mg/dL Glucose 186 H (65-100) mg/dL Calcium 8.3 L (8.4-10.2) mg/dL
[2019-11-06] MEDS ORDERED: FUROSEMIDE 20 MG/2 ML INJ IV ONE (15:19)
--- NOTE | 2019-11-06 15:19 | Progress Note ---
Assessment and Plan 64 y/o female with abnormal CXR and CT of chest, no PE now with worsening respiratory failure. 11/06: Spoke with RT, will attempt 10 liters later today. Continue steroids at current dosing. May start weaning as early as friday. Will also consider repeat imaging either Friday or Friday. 11/05/19: Continue to wean FiO2 as tolerated. Asked IMS to give something for sleep. Will go back up on the steroids. 11/03/19: Slightly improved today. Tolerated steroids at current dosing. Will continue 60q6 and reassess again tomorrow. Would not repeat imaging at this moment. Spoke with IMS who diuresed today and I agree with this. Would likely do again tomorrow. BNP was elevated at 2063. Spoke with RT about weaning for sats >88%. 1. Differential is broad given the pattern. Patient would benefit from HRCT but would like to get oxygen requirement down first. She is already on broad spec abx therapy so will start steroids at 60q6. May even consider pulse dose steroids in the next 24-36 hours. Possible diagnosis include, RBILD, DIP, AIP(very high mortality) and possible NSIP. She will need autoimmune work up . Will order TOMAS, RF and ESR right now. Will need SCL-70, anti centromere, TOMAS pa silvana, anticcp. Most likely these labs are send outs at this hospital. If able to get patient well enough, she will need open lung biopsy for adequate diagnosis but this is not the appropriate time. If she does decompensate (which she is at a high risk for) would intubate, start on Solumedrol 1 gram IV q24 for 3 doses and consider transfer to possible biopsy to either [facility] or [facility]. The latter that I just described I did not discuss with the patient. I did speak to them about biopsy. I expressed that smoking cessation is imperative and that she must not return back to smoking. Overall prognosis is guarded. Subjective Date of service: 11/06/19 Principal diagnosis: acute respiratory failure, sepsis, ILD, metabolic encephalopathy Interval history: No acute events. Asleep so did not wake up. not at bedside. Objective Vital Signs - 12hr 11/06/19 11/06/19 11/06/19 06:30 09:18 09:35 Temperature 98.1 F Pulse Rate 65 Pulse Rate [ 67 Anterior Bilateral Throughout] Respiratory 22 Rate Respiratory 20 Rate [Anterior Bilateral Throughout] Blood Pressure 157/86 O2 Sat by Pulse 89 98 Oximetry 11/06/19 11/06/19 14:16 14:26 Temperature Pulse Rate Pulse Rate [ 78 Anterior Bilateral Throughout] Respiratory Rate Respiratory 20 Rate [Anterior Bilateral Throughout] Blood Pressure O2 Sat by Pulse 97 Oximetry Constitutional: appears uncomfortable, other (mild distress) Eyes: icteric ENT: oropharynx moist, other (very poor dentition) Neck: supple Effort: mildly labored Ascultation: Bilateral: rales, rhonchi Percussion: Bilateral: not dull Tactile fremitus: Bilateral: normal Cardiovascular: other (tachy but sinus) Gastrointestinal: normoactive bowel sounds, soft Extremities: no edema Neurologic: normal mental status CBC and BMP: 11/03/19 07:03 11/06/19 04:27 ABG, PT/INR, D-dimer: ABG POC ABG pH 7.452 (7.35-7.45) H 11/02/19 09:06 POC ABG pCO2 28.5 (35-45) L 11/02/19 09:06 POC ABG pO2 53 (80-105) L 11/02/19 09:06 POC ABG HCO3 19.9 (22-26 mml/L) 11/02/19 09:06 POC ABG Total CO2 21 (23-27mmol/L) 11/02/19 09:06 POC ABG O2 Sat 89 11/02/19 09:06 Abnormal lab findings: Abnormal Labs 10/30/19 10/30/19 10/30/19 16:04 16:04 16:04 WBC RBC 5.61 H Hgb 17.1 H Hct 52.1 H Plt Count 107 L Lymph # 0.8 L Seg Neutrophils % 81.3 H POC ABG pH POC ABG pCO2 POC ABG pO2 Sodium 132 L Potassium 3.2 L Chloride 96.8 L Carbon Dioxide 21 L BUN 28 H Creatinine 1.7 H Glucose 161 H Lactic Acid 2.50 H* Calcium 8.0 L AST 441 H ALT 129 H NT-Pro-B Natriuret Pep Total Protein Albumin 3.7 L Urine pH Urine WBC (Auto) Rheumatoid Factor 10/30/19 10/30/19 10/31/19 16:04 17:10 09:12 WBC RBC Hgb 15.3 H Hct 46.0 H D Plt Count 85 L Lymph # 1.0 L Seg Neutrophils % 77.7 H POC ABG pH POC ABG pCO2 POC ABG pO2 Sodium Potassium Chloride Carbon Dioxide BUN Creatinine Glucose Lactic Acid Calcium AST 446 H ALT 129 H NT-Pro-B Natriuret Pep Total Protein Albumin Urine pH 8.0 H Urine WBC (Auto) > 182.0 H Rheumatoid Factor 10/31/19 11/01/19 11/01/19 09:12 08:11 08:11 WBC RBC Hgb 14.7 H Hct 44.2 H Plt Count 75 L Lymph # Seg Neutrophils % POC ABG pH POC ABG pCO2 POC ABG pO2 Sodium Potassium 3.1 L 3.2 L Chloride 109.9 H Carbon Dioxide 18 L 16 L BUN 23 H Creatinine Glucose 121 H 137 H Lactic Acid Calcium 7.6 L 8.1 L AST 298 H 198 H ALT 91 H 70 H NT-Pro-B Natriuret Pep Total Protein 5.6 L 5.4 L Albumin 3.1 L 2.8 L Urine pH Urine WBC (Auto) Rheumatoid Factor 11/02/19 11/02/19 11/02/19 05:20 05:20 09:06 WBC RBC Hgb Hct Plt Count 80 L Lymph # Seg Neutrophils % POC ABG pH 7.452 H POC ABG pCO2 28.5 L POC ABG pO2 53 L Sodium Potassium 3.4 L Chloride 108.8 H Carbon Dioxide 18 L BUN Creatinine Glucose 135 H Lactic Acid Calcium 8.1 L AST 120 H ALT NT-Pro-B Natriuret Pep Total Protein 5.3 L Albumin 2.6 L Urine pH Urine WBC (Auto) Rheumatoid Factor 11/02/19 11/02/19 11/03/19 17:50 20:45 07:03 WBC 3.5 L RBC Hgb Hct Plt Count 96 L Lymph # Seg Neutrophils % POC ABG pH POC ABG pCO2 POC ABG pO2 Sodium Potassium Chloride Carbon Dioxide BUN Creatinine Glucose Lactic Acid Calcium AST ALT NT-Pro-B Natriuret Pep 2064 H Total Protein Albumin Urine pH Urine WBC (Auto) Rheumatoid Factor 18 H 11/03/19 11/04/19 11/05/19 07:03 04:41 08:09 WBC RBC Hgb Hct Plt Count Lymph # Seg Neutrophils % POC ABG pH POC ABG pCO2 POC ABG pO2 Sodium Potassium 3.4 L 3.0 L Chloride 109.4 H Carbon Dioxide 16 L 19 L 21 L BUN 18 H 23 H 26 H Creatinine 0.6 L 0.6 L Glucose 169 H 174 H 163 H Lactic Acid Calcium 7.9 L 7.9 L 8.3 L AST ALT NT-Pro-B Natriuret Pep Total Protein Albumin Urine pH Urine WBC (Auto) Rheumatoid Factor 11/06/19 04:27 WBC RBC Hgb Hct Plt Count Lymph # Seg Neutrophils % POC ABG pH POC ABG pCO2 POC ABG pO2 Sodium Potassium Chloride 108.4 H Carbon Dioxide BUN 22 H Creatinine 0.6 L Glucose 186 H Lactic Acid Calcium 8.3 L AST ALT NT-Pro-B Natriuret Pep Total Protein Albumin Urine pH Urine WBC (Auto) Rheumatoid Factor
[2019-11-06] MEDS ORDERED: SODIUM CHLORIDE NASAL SPRAY 44ML NS PRN (15:20)
[2019-11-06] MEDS: QUEtiapine 25 MG TAB PO SCH (21:42)
[2019-11-07] MEDS: CEFEPIME/NS 2 GM/100 ML 2 GM/100 ML BAG IV SCH ×3 (05:14→22:46)
[2019-11-07] MEDS: methylPREDNISolone Sod Succinate 125 MG/2 ML INJ IV SCH ×4 (05:15→22:55)
[2019-11-07] MEDS: BENZONATATE 100 MG CAP PO SCH ×3 (05:15→22:46)
[2019-11-07] MEDS: IPRATROPIUM/ALBUTEROL SULFATE 3 ML AMPUL.NEB IH SCH ×3 (07:48→23:05)
--- NOTE | 2019-11-07 10:12 | Progress Note ---
Assessment and Plan 64 YO Female with Nicotine Dependence presents to ED for evaluation. Pt is confused, with shaking chills, and provides minimal history. Pt history provided by who is at bedside during exam and interview. As per , the patient has experienced "flu like symptoms" over the past 3 days with worsening symptoms over the same time frame. Pt acknowledges fever, shaking chills, fatigue, nonproductive cough, runny nose, and "not having any energy". Pt states that she feels to weak to stand independently. Pt acknowledges suspected flu exposure. Pt denies receiving flu shot this year. EMS notified, and upon arrival the patient was found to be in distress and transported to [facility]. Pt seen and evaluated in ED and found to be confused with Encephalopathy, and ill appearing. Pt found to have SIRS, UTI, Acidosis, and ESTELLE. Pt admitted to medical floor and initiated on IV antibiotic therapy and IVF resuscitation therapy. No reports of CP, Palpitations, Trauma, BRBPR, Skin Rash, Ingestion of food/water from new/different sources, neck pain, or recent ill contacts. NO prior admission for review. No medication listed at time of admission for reconciliation. Acute respiratory failure with hypoxia Overdose concerning for gabapentin, Flexeril and Dilantin and possible Tylenol. Intentional Suicidal Attempt-although patient denies Aspiration Pneuamonia- Not present on admission Acute Toxic Metabolic Encephalopathy Hypoalbunemia secondary to Liver disease Morbid obesity PTSD by history Alcohol dependence syndrome with abuse Seizure disorder by history Hypokalemia - corrected Transaminitis Chronic low back pain Multiple skin lesions Sinus Tachycardia SIRS without organ dysfunction Plan of care Continue with [facility] Continue on BIPAP Add vancomycin Tolerating Diuresis Pysch input noted Continue to monitor electrolytes and replace as needed Continue to monitor respiration which is still very high Aspiration precautions Hold all other home medications until pulmonary status is improved including Percocet and Flexeril We will change Keppra to IV. Mental health, neurology and GI input noted. Physical therapy 1 more awake DVT/GI PROPHY continue imcu care Sepsis likely secondary to acute cystitis Acute respiratory failure with hypoxia likely secondary to smoking related lung injury Possible underlining interstitial pulmonary disease versus fibrosis ESTELLE (acute kidney injury) with acute vasomotor nephropathy Nicotine dependence unspecified, with withdrawal Lactic acid acidosis Metabolic acidosis Hypokalemia Metabolic Encephalopathy Pneumonia UTI (urinary tract infection) Hyponatremia syndrome Elevated LFTs Thrombocytopenia Plan Supportive care Continue steroid tapering CT of the head was normal Anticipate discharge once patient's oxygen level can be switched to nasal cannula IV steroids started and slow tapering as recommended by pulmonary Autoimmune work-up in progress Continue Empiric Antibiotics- Cefepime- stop Vancomycin no growth in 4 days Replace Electrolyte PTOT CT head and abdomen and pelvis cultures for urine was unremarkable. Blood cultures negative at this time. LFT improving Per pulmonary consultation * Differential is broad given the patter. Patient would benefit from HRCT but would like to get oxygen requirement down first. She is already on broad spec abx therapy so will start steroids at 60q6. May even consider pulse dose steroids in the next 24-36 hours. Possible diagnosis include, RBILD, DIP, AIP(very high mortality) and possible NSIP. She will need autoimmune work up . Will order TOMAS, RF and ESR right now. Will need SCL-70, anti centromere, TOMAS panel, anticcp. Most likely these labs are send outs at this hospital. If able to get patient well enough, she will need open lung biopsy for adequate diagnosis but this is not the appropriate time. If she does decompensate (which she is at a high risk for) would intubate, start on Solumedrol 1 gram IV q24 for 3 doses and consider transfer to possible biopsy to [facility] or [facility]. The latter that I just described I did not discuss with the patient. I did speak to them about biopsy. I expressed that smoking cessation is imperative and that she must not return back to smoking. Renal function improving Check sodium level Check Legionella DVT/GI prophy Hold Heparin due to Thrombocytopenia Plan discussed with patient and family Disposition: D/c when of [facility]. Subjective Date of service: 11/07/19 Principal diagnosis: acute respiratory failure, sepsis, ILD, metabolic encephalopathy Interval history: Patient's Lying quietly in bed in no acute distress. by the site. Still on high flow oxygen. Objective - Exam Narrative Exam: Constitutional: Well-nourished well-developed. In no distress. On high flow ox ygen via NC Head: Normocephalic atraumatic Eyes: Pupils are equal round and reactive to light Nose: No enlarged turbinates, no septal deviation. Mouth: Moist mucous membranes. Neck: Supple no thyromegaly. No bruit. No JVD Heart: Regular rate and rhythm, S1-S2 normal. No rubs murmurs or gallop Lungs: Decreased breath sounds bilaterally to auscultation bilaterally. no rales or rhonchi Abdomen: Soft, nontender. Bowel sound are present. Extremities: No edema, no cyanosis, no clubbing. Neuro: Alert oriented Oriented x3. No focal sensory or motor deficit. Skin: No rashes or hyperpigmented spots Musculoskeletal system: No joint pain or swelling Hematological: No petechia or subcutanous hemorrhages. Immunological: No multiple septic spots on the skin Lymphatic: No generalized lymphadenopathy Psychiatry: Euthymic. Calm. - Constitutional Vitals: Vital Signs - 12hr 11/06/19 11/06/19 11/06/19 22:00 23:00 23:08 Temperature 98.1 F Pulse Rate 62 Respiratory 18 22 Rate Respiratory 17 Rate [ Generalized] Blood Pressure 148/71 O2 Sat by Pulse 95 92 Oximetry 11/07/19 11/07/19 02:00 05:15 Temperature 98.5 F Pulse Rate 56 L Respiratory 20 Rate Respiratory Rate [ Generalized] Blood Pressure 156/69 O2 Sat by Pulse 96 94 Oximetry - Labs CBC & Chem 7: 11/03/19 07:03 11/06/19 04:27
[2019-11-07] MEDS ORDERED: FUROSEMIDE 20 MG/2 ML INJ IV ONE (12:49)
--- NOTE | 2019-11-07 13:13 | Progress Note ---
Assessment and Plan 64 y/o female with abnormal CXR and CT of chest, no PE now with worsening respiratory failure. 11/07: Can stop abx therapy after today. Today would be 8 days I think. Will check with Pharmacy. Will also start weaning steroids. Will drop to 60q8. Asked RT to place on venti mask and check sats. 88% and greater are acceptable. Needs repeat imaging, suggest starting with CXR tomorrow. If no change, will need to be arrange for outpatient follow up with Thoracic surgery for open lung biopsy. 11/06: Spoke with RT, will attempt 10 liters later today. Continue steroids at current dosing. May start weaning as early as friday. Will also consider repeat imaging either Friday or Friday. 11/05/19: Continue to wean FiO2 as tolerated. Asked IMS to give something for sleep. Will go back up on the steroids. 11/03/19: Slightly improved today. Tolerated steroids at current dosing. Will continue 60q6 and reassess again tomorrow. Would not repeat imaging at this moment. Spoke with IMS who diuresed today and I agree with this. Would likely do again tomorrow. BNP was elevated at 2063. Spoke with RT about weaning for sats >88%. 1. Differential is broad given the pattern. Patient would benefit from HRCT but would like to get oxygen requirement down first. She is already on broad spec abx therapy so will start steroids at 60q6. May even consider pulse dose stero ids in the next 24-36 hours. Possible diagnosis include, RBILD, DIP, AIP(very high mortality) and possible NSIP. She will need autoimmune work up . Will order TOMAS, RF and ESR right now. Will need SCL-70, anti centromere, TOMAS panel, anticcp. Most likely these labs are send outs at this hospital. If able to get patient well enough, she will need open lung biopsy for adequate diagnosis but this is not the appropriate time. If she does decompensate (which she is at a high risk for) would intubate, start on Solumedrol 1 gram IV q24 for 3 doses and consider transfer to possible biopsy to either [facility] or [facility]. The latter that I just described I did not discuss with the patient. I did speak to them about biopsy. I expressed that smoking cessation is imperative and that she must not return back to smoking. Overall prognosis is guarded. Subjective Date of service: 11/07/19 Principal diagnosis: acute respiratory failure, sepsis, ILD, metabolic encephalopathy Interval history: No acute events. Down to 15 and 35. Will try on Venti mask. at bedside. Objective Vital Signs - 12hr 11/07/19 11/07/19 11/07/19 02:00 05:15 12:17 Temperature 98.5 F 97.7 F Pulse Rate 56 L 60 Respiratory 20 20 Rate Blood Pressure 156/69 152/79 O2 Sat by Pulse 96 94 93 Oximetry Constitutional: alert Eyes: icteric ENT: oropharynx moist, other (very poor dentition) Neck: supple Effort: mildly labored Ascultation: Bilateral: rales, rhonchi Percussion: Bilateral: not dull Tactile fremitus: Bilateral: normal Cardiovascular: other (tachy but sinus) Gastrointestinal: normoactive bowel sounds, soft Extremities: no edema Neurologic: normal mental status CBC and BMP: 11/03/19 07:03 11/06/19 04:27 ABG, PT/INR, D-dimer: ABG POC ABG pH 7.452 (7.35-7.45) H 11/02/19 09:06 POC ABG pCO2 28.5 (35-45) L 11/02/19 09:06 POC ABG pO2 53 (80-105) L 11/02/19 09:06 POC ABG HCO3 19.9 (22-26 mml/L) 11/02/19 09:06 POC ABG Total CO2 21 (23-27mmol/L) 11/02/19 09:06 POC ABG O2 Sat 89 11/02/19 09:06 Abnormal lab findings: Abnormal Labs 10/30/19 10/30/19 10/30/19 16:04 16:04 16:04 WBC RBC 5.61 H Hgb 17.1 H Hct 52.1 H Plt Count 107 L Lymph # 0.8 L Seg Neutrophils % 81.3 H POC ABG pH POC ABG pCO2 POC ABG pO2 Sodium 132 L Potassium 3.2 L Chloride 96.8 L Carbon Dioxide 21 L BUN 28 H Creatinine 1.7 H Glucose 161 H Lactic Acid 2.50 H* Calcium 8.0 L AST 441 H ALT 129 H NT-Pro-B Natriuret Pep Total Protein Albumin 3.7 L Urine pH Urine WBC (Auto) Rheumatoid Factor 10/30/19 10/30/19 10/31/19 16:04 17:10 09:12 WBC RBC Hgb 15.3 H Hct 46.0 H D Plt Count 85 L Lymph # 1.0 L Seg Neutrophils % 77.7 H POC ABG pH POC ABG pCO2 POC ABG pO2 Sodium Potassium Chloride Carbon Dioxide BUN Creatinine Glucose Lactic Acid Calcium AST 446 H ALT 129 H NT-Pro-B Natriuret Pep Total Protein Albumin Urine pH 8.0 H Urine WBC (Auto) > 182.0 H Rheumatoid Factor 10/31/19 11/01/19 11/01/19 09:12 08:11 08:11 WBC RBC Hgb 14.7 H Hct 44.2 H Plt Count 75 L Lymph # Seg Neutrophils % POC ABG pH POC ABG pCO2 POC ABG pO2 Sodium Potassium 3.1 L 3.2 L Chloride 109.9 H Carbon Dioxide 18 L 16 L BUN 23 H Creatinine Glucose 121 H 137 H Lactic Acid Calcium 7.6 L 8.1 L AST 298 H 198 H ALT 91 H 70 H NT-Pro-B Natriuret Pep Total Protein 5.6 L 5.4 L Albumin 3.1 L 2.8 L Urine pH Urine WBC (Auto) Rheumatoid Factor 11/02/19 11/02/19 11/02/19 05:20 05:20 09:06 WBC RBC Hgb Hct Plt Count 80 L Lymph # Seg Neutrophils % POC ABG pH 7.452 H POC ABG pCO2 28.5 L POC ABG pO2 53 L Sodium Potassium 3.4 L Chloride 108.8 H Carbon Dioxide 18 L BUN Creatinine Glucose 135 H Lactic Acid Calcium 8.1 L AST 120 H ALT NT-Pro-B Natriuret Pep Total Protein 5.3 L Albumin 2.6 L Urine pH Urine WBC (Auto) Rheumatoid Factor 11/02/19 11/02/19 11/03/19 17:50 20:45 07:03 WBC 3.5 L RBC Hgb Hct Plt Count 96 L Lymph # Seg Neutrophils % POC ABG pH POC ABG pCO2 POC ABG pO2 Sodium Potassium Chloride Carbon Dioxide BUN Creatinine Glucose Lactic Acid Calcium AST ALT NT-Pro-B Natriuret Pep 2064 H Total Protein Albumin Urine pH Urine WBC (Auto) Rheumatoid Factor 18 H 11/03/19 11/04/19 11/05/19 07:03 04:41 08:09 WBC RBC Hgb Hct Plt Count Lymph # Seg Neutrophils % POC ABG pH POC ABG pCO2 POC ABG pO2 Sodium Potassium 3.4 L 3.0 L Chloride 109.4 H Carbon Dioxide 16 L 19 L 21 L BUN 18 H 23 H 26 H Creatinine 0.6 L 0.6 L Glucose 169 H 174 H 163 H Lactic Acid Calcium 7.9 L 7.9 L 8.3 L AST ALT NT-Pro-B Natriuret Pep Total Protein Albumin Urine pH Urine WBC (Auto) Rheumatoid Factor 11/06/19 04:27 WBC RBC Hgb Hct Plt Count Lymph # Seg Neutrophils % POC ABG pH POC ABG pCO2 POC ABG pO2 Sodium Potassium Chloride 108.4 H Carbon Dioxide BUN 22 H Creatinine 0.6 L Glucose 186 H Lactic Acid Calcium 8.3 L AST ALT NT-Pro-B Natriuret Pep Total Protein Albumin Urine pH Urine WBC (Auto) Rheumatoid Factor
--- NOTE | 2019-11-07 14:45 | Progress Note ---
Assessment and Plan 64 YO Female with Nicotine Dependence presents to ED for evaluation. Pt is confused, with shaking chills, and provides minimal history. Pt history provided by who is at bedside during exam and interview. As per , the patient has experienced "flu like symptoms" over the past 3 days with worsening symptoms over the same time frame. Pt acknowledges fever, shaking chills, fatigue, nonproductive cough, runny nose, and "not having any energy". Pt states that she feels to weak to stand independently. Pt acknowledges suspected flu exposure. Pt denies receiving flu shot this year. EMS notified, and upon arrival the patient was found to be in distress and transported to [facility]. Pt seen and evaluated in ED and found to be confused with Encephalopathy, and ill appearing. Pt found to have SIRS, UTI, Acidosis, and ESTELLE. Pt admitted to medical floor and initiated on IV antibiotic therapy and IVF resuscitation therapy. No reports of CP, Palpitations, Trauma, BRBPR, Skin Rash, Ingestion of food/water from new/different sources, neck pain, or recent ill contacts. NO prior admission for review. No medication listed at time of admission for reconciliation. Sepsis likely secondary to acute cystitis Acute respiratory failure with hypoxia likely secondary to smoking related lung injury Possible underlining interstitial pulmonary disease versus fibrosis ESTELLE (acute kidney injury) with acute vasomotor nephropathy - improving Nicotine dependence unspecified, with withdrawal Metabolic acidosis Hypokalemia - corrected Metabolic Encephalopathy - improved Pneumonia UTI (urinary tract infection) Hyponatremia syndrome - resolved Elevated LFTs Thrombocytopenia Hyperglycemia - steriod induced Plan Continue with bronchodilators and supplemental oxygen Continue steroid tapering per mental retardation nurse CT of the head was normal Autoimmune work-up in progress Continue Empiric Antibiotics- Cefepime- stop Vancomycin no growth in 4 days Replace Electrolyte PTOT cultures for urine was unremarkable. Blood cultures negative to date. LFT improving Obtain A1c, commnece SSI Per pulmonary consultation * Differential is broad given the patter. Patient would benefit from HRCT but would like to get oxygen requirement down first. She is already on broad spec abx therapy so will start steroids at 60q6. May even consider pulse dose steroids in the next 24-36 hours. Possible diagnosis include, RBILD, DIP, AIP(very high mortality) and possible NSIP. She will need autoimmune work up . Will order TOMAS, RF and ESR right now. Will need SCL-70, anti centromere, TOMAS panel, anticcp. Most likely these labs are send outs at this hospital. If able to get patient well enough, she will need open lung biopsy for adequate diagnosis but this is not the appropriate time. If she does decompensate (which she is at a high risk for) would intubate, start on Solumedrol 1 gram IV q24 for 3 doses and consider transfer to possible biopsy to either [facility] or [facility]. The latter that I just described I did not discuss with the patient. I did speak to them about biopsy. I expressed that smoking cessation is imperative and that she must not return back to smoking. Renal function improving Check sodium level Check Legionella DVT/GI prophy Hold Heparin due to Thrombocytopenia Plan discussed with patient and family Disposition: D/c when of [facility]. Subjective Date of service: 11/07/19 Principal diagnosis: acute respiratory failure, sepsis, ILD, metabolic enc ephalopathy Interval history: Patient's Lying quietly in bed in no acute distress. by the bed side. Still on high flow oxygen. Objective - Exam Narrative Exam: Constitutional: Well-nourished well-developed. In no distress. On high flow oxygen via [place] Head: Normocephalic atraumatic Eyes: Pupils are equal round and reactive to light Nose: No enlarged turbinates, no septal deviation. Mouth: Moist mucous membranes. Neck: Supple no thyromegaly. No bruit. No JVD Heart: Regular rate and rhythm, S1-S2 normal. No rubs murmurs or gallop Lungs: Decreased breath sounds bilaterally to auscultation bilaterally. no rales or rhonchi Abdomen: Soft, nontender. Bowel sound are present. Extremities: No edema, no cyanosis, no clubbing. Neuro: Alert oriented Oriented x3. No focal sensory or motor deficit. Skin: No rashes or hyperpigmented spots Musculoskeletal system: No joint pain or swelling Hematological: No petechia or subcutanous hemorrhages. Immunological: No multiple septic spots on the skin Lymphatic: No generalized lymphadenopathy Psychiatry: Euthymic. Calm. - Constitutional Vitals: Vital Signs - 12hr 11/07/19 11/07/19 11/07/19 05:15 08:00 12:17 Temperature 98.5 F 97.7 F Pulse Rate 56 L 60 Pulse Rate [ 68 Anterior Bilateral Throughout] Respiratory 20 20 Rate Respiratory 20 Rate [Anterior Bilateral Throughout] Blood Pressure 156/69 152/79 O2 Sat by Pulse 94 98 93 Oximetry - Labs CBC & Chem 7: 11/03/19 07:03 11/06/19 04:27
[2019-11-07] MEDS ORDERED: DEXTROSE 50% IN WATER (25GM) 50 ML SYRINGE IV PRN (19:59)
[2019-11-07] MEDS: QUEtiapine 25 MG TAB PO SCH (22:46)
[2019-11-07] MEDS: INSULIN LISPRO 100 UNIT/ML SUB-Q SCH (22:47)
[2019-11-08 05:42] LABS: Hematocrit 42.5 % (30.3-42.9); Hemoglobin 13.9 gm/dl (10.1-14.3); Mean Corpuscular HGB Conc 33 % (30-34); Mean Corpuscular Volume 92 fl (79-97); Platelet Count 230 K/mm3 (140-440); Red Blood Count 4.62 M/mm3 (3.65-5.03); Red Cell Distribution Width 13.2 % (13.2-15.2)
[2019-11-08] MEDS: BENZONATATE 100 MG CAP PO SCH ×3 (05:56→21:41)
[2019-11-08] MEDS: methylPREDNISolone Sod Succinate 125 MG/2 ML INJ IV SCH ×3 (05:57→21:41)
[2019-11-08 06:05] LABS: Alanine Aminotransferase 52 units/L (7-56); Albumin 3.4 g/dL (3.9-5); BUN/Creatinine Ratio 34; Blood Urea Nitrogen 24 mg/dL (7-17); Calcium 8.6 mg/dL (8.4-10.2); Hemolysis Index 4
[2019-11-08 06:52] LABS: Band Neutrophils # (Manual) 0.3 K/mm3; Basophils % (Manual) 0 % (0.0-1.8); Eosinophils % (Manual) 0 % (0.0-4.3); Total Cells Counted 100
[2019-11-08 06:53] LABS: Large Platelets Few; Platelet Estimate Cons; RBC Morphology Normal
[2019-11-08] MEDS: IPRATROPIUM/ALBUTEROL SULFATE 3 ML AMPUL.NEB IH SCH ×3 (08:23→21:13)
--- NOTE | 2019-11-08 08:36 | XRay Report ---
CHEST 1 VIEW INDICATION: Hypoxemia. COMPARISON: 10/30/2019 FINDINGS: Support devices: None. Heart: Within normal limits. Lungs/Pleura: The interstitium in the lower lung zones remains very prominent suggesting underlying i nterstitial lung disease. There are linear areas of atelectasis or scarring in both lower lobes as we ll. Focal airspace opacity is identified posterior to the heart which is slightly decreased in size. It is unclear if this represents pneumonia or chronic changes. The upper lung zones are clear. No sig nificant pleural fluid or pneumothorax. Additional findings: None. IMPRESSION: Advanced interstitial lung disease is suspected as described above. No overwhelming change since . Questionable left lower lobe infiltrate. Signer Name: Tito Horvath Jr, MD Signed: 11/08/2019 8:31 AM Workstation Name: [id number]
[2019-11-08] MEDS: INSULIN LISPRO 100 UNIT/ML SUB-Q SCH ×4 (09:02→22:05)
[2019-11-08 14:05] LABS: Creatinine,Urine 112.2 mg/dL (0.1-20.0)
[2019-11-08 14:19] LABS: Microalbumin/Creatinine Ratio 487.5 ug/mg
--- NOTE | 2019-11-08 20:34 | Progress Note ---
Assessment and Plan 64 YO Female with Nicotine Dependence presents to ED for evaluation. Pt is confused, with shaking chills, and provides minimal history. Pt history provided by who is at bedside during exam and interview. As per , the patient has experienced "flu like symptoms" over the past 3 days with worsening symptoms over the same time frame. Pt acknowledges fever, shaking chills, fatigue, nonproductive cough, runny nose, and "not having any energy". Pt states that she feels to weak to stand independently. Pt acknowledges suspected flu exposure. Pt denies receiving flu shot this year. EMS notified, and upon arrival the patient was found to be in distress and transported to [facility]. Pt seen and evaluated in ED and found to be confused with Encephalopathy, and ill appearing. Pt found to have SIRS, UTI, Acidosis, and ESTELLE. Pt admitted to medical floor and initiated on IV antibiotic therapy and IVF resuscitation therapy. No reports of CP, Palpitations, Trauma, BRBPR, Skin Rash, Ingestion of food/water from new/different sources, neck pain, or recent ill contacts. NO prior admission for review. No medication listed at time of admission for reconciliation. 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 Blood cultures negative to date. LFT improving A1c 6.8%, commnece SSI Per pulmonary consultation * Differential is broad given the patter. Patient would benefit from HRCT but would like to get oxygen requirement down first. She is already on broad spec abx therapy so will start steroids at 60q6. May even consider pulse dose steroids in the next 24-36 hours. Possible diagnosis include, RBILD, DIP, AIP(very high mortality) and possible NSIP. She will need autoimmune work up . Will order TOMAS, RF and ESR right now. Will need SCL-70, anti centromere, TOMAS panel, anticcp. Most likely these labs are send outs at this hospital. If able to get patient well enough, she will need open lung biopsy for adequate diagnosis but this is not the appropriate time. If she does deco mpensate (which she is at a high risk for) would intubate, start on Solumedrol 1 gram IV q24 for 3 doses and consider transfer to possible biopsy to either [facility] or [facility]. The latter that I just described I did not discuss with the patient. I did speak to them about biopsy. I expressed that smoking cessation is imperative and that she must not return back to smoking. Check sodium level DVT/GI prophy Plan discussed with patient and family Disposition: Taper steriod to po level and D/c to rehab vs home as pt is still short of breath on slight exertion. L{jasson biopsy still necessaty on out pt hbases at [place] or [facility] Subjective Date of service: 11/08/19 Principal diagnosis: acute respiratory failure, sepsis, ILD, metabolic encephalopathy Interval history: Patient's Lying quietly in bed in no acute distress. by the bed side. Off High flow oxygen. On 3L/min via [place]. Objective - Exam Narrative Exam: Constitutional: Well-nourished well-developed. In no distress. On o2 vis N/C . Off high flow oxygen Head: Normocephalic atraumatic Eyes: Pupils are equal round and reactive to light Nose: No enlarged turbinates, no septal deviation. Mouth: Moist mucous membranes. Neck: Supple no thyromegaly. No bruit. No JVD Heart: Regular rate and rhythm, S1-S2 normal. No rubs murmurs or gallop Lungs: Decreased breath sounds bilaterally to auscultation bilaterally. no rales or rhonchi Abdomen: Soft, nontender. Bowel sound are present. Extremities: No edema, no cyanosis, no clubbing. Neuro: Alert oriented Oriented x3. No focal sensory or motor deficit. Skin: No rashes or hyperpigmented spots Musculoskeletal system: No joint pain or swelling Hematological: No petechia or subcutanous hemorrhages. Immunological: No multiple septic spots on the skin Lymphatic: No generalized lymphadenopathy Psychiatry: Euthymic. Calm. - Constitutional Vitals: Vital Signs - 12hr 11/08/19 11/08/19 11/08/19 11:46 13:50 13:51 Temperature 98.5 F Pulse Rate 63 Pulse Rate [ 71 Anterior Bilateral Throughout] Respiratory 19 Rate Respiratory 20 Rate [Anterior Bilateral Throughout] Blood Pressure 148/74 O2 Sat by Pulse 97 98 Oximetry 11/08/19 16:38 Temperature 98.5 F Pulse Rate 63 Pulse Rate [ Anterior Bilateral Throughout] Respiratory 19 Rate Respiratory Rate [Anterior Bilateral Throughout] Blood Pressure 159/83 O2 Sat by Pulse 94 Oximetry - Labs CBC & Chem 7: 11/08/19 04:52 11/08/19 04:52 Labs: Abnormal lab results 11/07/19 11/07/19 11/08/19 Range/Units 20:22 22:06 04:52 Seg Neuts % (Manual) 80.0 H (40.0-70.0) % Lymphocytes % (Manual) 12.0 L (13.4-35.0) % Nucleated RBC % 1.0 H (0.0-0.9) % Lymphocytes # (Manual) 1.1 L (1.2-5.4) K/mm3 Potassium (3.6-5.0) mmol/L BUN (7-17) mg/dL Glucose (65-100) mg/dL POC Glucose 150 H (70-105) Hemoglobin A1c 6.8 H (4-6) % Total Protein (6.3-8.2) g/dL Albumin (3.9-5) g/dL Urine Creatinine (0.1-20.0) mg/dL Urine Microalbumin (0.1-34.0) mg/dL 11/08/19 11/08/19 11/08/19 Range/Units 04:52 06:55 07:58 Seg Neuts % (Manual) (40.0-70.0) % Lymphocytes % (Manual) (13.4-35.0) % Nucleated RBC % (0.0-0.9) % Lymphocytes # (Manual) (1.2-5.4) K/mm3 Potassium 3.4 L (3.6-5.0) mmol/L BUN 24 H (7-17) mg/dL Glucose 158 H (65-100) mg/dL POC Glucose 213 H (70-105) Hemoglobin A1c (4-6) % Total Protein 5.8 L (6.3-8.2) g/dL Albumin 3.4 L (3.9-5) g/dL Urine Creatinine 112.2 H (0.1-20.0) mg/dL Urine Microalbumin 54.7 H (0.1-34.0) mg/dL 11/08/19 11/08/19 Range/Units 11:56 16:48 Seg Neuts % (Manual) (40.0-70.0) % Lymphocytes % (Manual) (13.4-35.0) % Nucleated RBC % (0.0-0.9) % Lymphocytes # (Manual) (1.2-5.4) K/mm3 Potassium (3.6-5.0) mmol/L BUN (7-17) mg/dL Glucose (65-100) mg/dL POC Glucose 137 H 246 H (70-105) Hemoglobin A1c (4-6) % Total Protein (6.3-8.2) g/dL Albumin (3.9-5) g/dL Urine Creatinine (0.1-20.0) mg/dL Urine Microalbumin (0.1-34.0) mg/dL
[2019-11-08] MEDS: QUEtiapine 25 MG TAB PO SCH (21:41)
[2019-11-08] MEDS ORDERED: AZITHROMYCIN 250 MG TAB PO SCH (23:11)
--- NOTE | 2019-11-08 23:13 | Progress Note ---
Assessment and Plan Imp: 1. CAP 2. ILD of ? etiology 3. Acute respiratory failure, hypoxia 4. Sepsis 5. Chronic nicotine dependence, cigarettes Rec: 1. Taper Solumedrol; Prednisone taper at d/c 2. Would complete CTD panel at some point 3. Stop smoking as ILD could be smoking-related 4. Would complete 5 days of Zithromax PO to cover atypicals 5. Home O2 evaluation 6. Outpatient PFTs and f/u CXRs +/- HRCT then Plan of care reviewed with patient, she understands/agrees Subjective Date of service: 11/08/19 Principal diagnosis: acute respiratory failure, sepsis, ILD, metabolic encephalopathy Interval history: No events. Awake, alert, walking to BR. Off O2. SOB better. Active Medications Acetaminophen (Tylenol) 650 mg PO Q4H PRN PRN Reason: Pain MILD(1-3)/Fever >100.5/GAMING Last Admin: 11/04/19 14:05 Dose: 650 mg Documented by: Albuterol (Proventil) 2.5 mg IH Q4HRT PRN PRN Reason: Shortness Of Breath Albuterol/Ipratropium (Duoneb *Not For Prn Use*) 1 ampul IH TIDRT [facility] Last Admin: 11/08/19 21:13 Dose: 1 ampul Documented by: Azithromycin (Zithromax) 500 mg PO QDAY [facility] Stop: 11/13/19 23:10 Benzonatate (Tessalon Perles) 100 mg PO Q8HR [facility] Last Admin: 11/08/19 21:41 Dose: 100 mg Documented by: Dextrose (D50w (25gm) Syringe) 50 ml IV Q30MIN PRN; Protocol PRN Reason: Hypoglycemia Insulin Human Lispro (Humalog) 0 unit SUB-Q ACHS [facility]; Protocol Last Admin: 11/08/19 22:05 Dose: 2 unit Documented by: Methylprednisolone Sodium Succinate (Solu-Medrol) 20 mg IV Q8H [facility] Quetiapine Fumarate (Seroquel) 50 mg PO QHS [facility] Last Admin: 11/08/19 21:41 Dose: 50 mg Documented by: Sodium Chloride (Sodium Chloride Flush Syringe 10 Ml) 10 ml IV BID [facility] Last Admin: 11/08/19 21:40 Dose: 10 ml Documented by: Sodium Chloride (Sodium Chloride Flush Syringe 10 Ml) 10 ml IV PRN PRN PRN Reason: LINE FLUSH Sodium Chloride (Deep Sea) 2 spray NS PRN PRN PRN Reason: Dry Nasal Passages Last Admin: 11/06/19 21:41 Dose: 2 spray Documented by: Objective Vital Signs - 12hr 11/08/19 11/08/19 11/08/19 11:46 13:50 13:51 Temperature 98.5 F Pulse Rate 63 Pulse Rate [ 71 Anterior Bilateral Throughout] Respiratory 19 Rate Respiratory 20 Rate [Anterior Bilateral Throughout] Blood Pressure 148/74 O2 Sat by Pulse 97 98 Oximetry 11/08/19 11/08/19 11/08/19 16:38 21:14 21:15 Temperature 98.5 F Pulse Rate 63 Pulse Rate [ 63 Anterior Bilateral Throughout] Respiratory 19 Rate Respiratory 20 Rate [Anterior Bilateral Throughout] Blood Pressure 159/83 O2 Sat by Pulse 94 94 Oximetry Constitutional: no acute distress, alert Eyes: non-icteric ENT: oropharynx moist, other (very poor dentition) Neck: supple Effort: normal Ascultation: Bilateral: rales (bases) Cardiovascular: other (tachy but sinus) Gastrointestinal: normoactive bowel sounds, soft Extremities: no cyanosis, no edema Neurologic: normal mental status, non-focal exam, pupils equal and round, CN II- XII normal Psychiatric: mood appropriate, affect normal CBC and BMP: 11/08/19 04:52 11/08/19 04:52 ABG, PT/INR, D-dimer: ABG POC ABG pH 7.452 (7.35-7.45) H 11/02/19 09:06 POC ABG pCO2 28.5 (35-45) L 11/02/19 09:06 POC ABG pO2 53 (80-105) L 11/02/19 09:06 POC ABG HCO3 19.9 (22-26 mml/L) 11/02/19 09:06 POC ABG Total CO2 21 (23-27mmol/L) 11/02/19 09:06 POC ABG O2 Sat 89 11/02/19 09:06 Abnormal lab findings: Abnormal Labs 10/30/19 10/30/19 10/30/19 16:04 16:04 16:04 WBC RBC 5.61 H Hgb 17.1 H Hct 52.1 H Plt Count 107 L Lymph # 0.8 L Seg Neutrophils % 81.3 H Seg Neuts % (Manual) Lymphocytes % (Manual) Nucleated RBC % Lymphocytes # (Manual) POC ABG pH POC ABG pCO2 POC ABG pO2 Sodium 132 L Potassium 3.2 L Chloride 96.8 L Carbon Dioxide 21 L BUN 28 H Creatinine 1.7 H Glucose 161 H POC Glucose Hemoglobin A1c Lactic Acid 2.50 H* Calcium 8.0 L AST 441 H ALT 129 H NT-Pro-B Natriuret Pep Total Protein Albumin 3.7 L Urine pH Urine WBC (Auto) Urine Creatinine Urine Microalbumin Rheumatoid Factor 10/30/19 10/30/19 10/31/19 16:04 17:10 09:12 WBC RBC Hgb 15.3 H Hct 46.0 H D Plt Count 85 L Lymph # 1.0 L Seg Neutrophils % 77.7 H Seg Neuts % (Manual) Lymphocytes % (Manual) Nucleated RBC % Lymphocytes # (Manual) POC ABG pH POC ABG pCO2 POC ABG pO2 Sodium Potassium Chloride Carbon Dioxide BUN Creatinine Glucose POC Glucose Hemoglobin A1c Lactic Acid Calcium AST 446 H ALT 129 H NT-Pro-B Natriuret Pep Total Protein Albumin Urine pH 8.0 H Urine WBC (Auto) > 182.0 H Urine Creatinine Urine Microalbumin Rheumatoid Factor 10/31/19 11/01/19 11/01/19 09:12 08:11 08:11 WBC RBC Hgb 14.7 H Hct 44.2 H Plt Count 75 L Lymph # Seg Neutrophils % Seg Neuts % (Manual) Lymphocytes % (Manual) Nucleated RBC % Lymphocytes # (Manual) POC ABG pH POC ABG pCO2 POC ABG pO2 Sodium Potassium 3.1 L 3.2 L Chloride 109.9 H Carbon Dioxide 18 L 16 L BUN 23 H Creatinine Glucose 121 H 137 H POC Glucose Hemoglobin A1c Lactic Acid Calcium 7.6 L 8.1 L AST 298 H 198 H ALT 91 H 70 H NT-Pro-B Natriuret Pep Total Protein 5.6 L 5.4 L Albumin 3.1 L 2.8 L Urine pH Urine WBC (Auto) Urine Creatinine Urine Microalbumin Rheumatoid Factor 11/02/19 11/02/19 11/02/19 05:20 05:20 09:06 WBC RBC Hgb Hct Plt Count 80 L Lymph # Seg Neutrophils % Seg Neuts % (Manual) Lymphocytes % (Manual) Nucleated RBC % Lymphocytes # (Manual) POC ABG pH 7.452 H POC ABG pCO2 28.5 L POC ABG pO2 53 L Sodium Potassium 3.4 L Chloride 108.8 H Carbon Dioxide 18 L BUN Creatinine Glucose 135 H POC Glucose Hemoglobin A1c Lactic Acid Calcium 8.1 L AST 120 H ALT NT-Pro-B Natriuret Pep Total Protein 5.3 L Albumin 2.6 L Urine pH Urine WBC (Auto) Urine Creatinine Urine Microalbumin Rheumatoid Factor 11/02/19 11/02/19 11/03/19 17:50 20:45 07:03 WBC 3.5 L RBC Hgb Hct Plt Count 96 L Lymph # Seg Neutrophils % Seg Neuts % (Manual) Lymphocytes % (Manual) Nucleated RBC % Lymphocytes # (Manual) POC ABG pH POC ABG pCO2 POC ABG pO2 Sodium Potassium Chloride Carbon Dioxide BUN Creatinine Glucose POC Glucose Hemoglobin A1c Lactic Acid Calcium AST ALT NT-Pro-B Natriuret Pep 2064 H Total Protein Albumin Urine pH Urine WBC (Auto) Urine Creatinine Urine Microalbumin Rheumatoid Factor 18 H 11/03/19 11/04/19 11/05/19 07:03 04:41 08:09 WBC RBC Hgb Hct Plt Count Lymph # Seg Neutrophils % Seg Neuts % (Manual) Lymphocytes % (Manual) Nucleated RBC % Lymphocytes # (Manual) POC ABG pH POC ABG pCO2 POC ABG pO2 Sodium Potassium 3.4 L 3.0 L Chloride 109.4 H Carbon Dioxide 16 L 19 L 21 L BUN 18 H 23 H 26 H Creatinine 0.6 L 0.6 L Glucose 169 H 174 H 163 H POC Glucose Hemoglobin A1c Lactic Acid Calcium 7.9 L 7.9 L 8.3 L AST ALT NT-Pro-B Natriuret Pep Total Protein Albumin Urine pH Urine WBC (Auto) Urine Creatinine Urine Microalbumin Rheumatoid Factor 11/06/19 11/07/19 11/07/19 04:27 20:22 22:06 WBC RBC Hgb Hct Plt Count Lymph # Seg Neutrophils % Seg Neuts % (Manual) Lymphocytes % (Manual) Nucleated RBC % Lymphocytes # (Manual) POC ABG pH POC ABG pCO2 POC ABG pO2 Sodium Potassium Chloride 108.4 H Carbon Dioxide BUN 22 H Creatinine 0.6 L Glucose 186 H POC Glucose 150 H Hemoglobin A1c 6.8 H Lactic Acid Calcium 8.3 L AST ALT NT-Pro-B Natriuret Pep Total Protein Albumin Urine pH Urine WBC (Auto) Urine Creatinine Urine Microalbumin Rheumatoid Factor 11/08/19 11/08/19 11/08/19 04:52 04:52 06:55 WBC RBC Hgb Hct Plt Count Lymph # Seg Neutrophils % Seg Neuts % (Manual) 80.0 H Lymphocytes % (Manual) 12.0 L Nucleated RBC % 1.0 H Lymphocytes # (Manual) 1.1 L POC ABG pH POC ABG pCO2 POC ABG pO2 Sodium Potassium 3.4 L Chloride Carbon Dioxide BUN 24 H Creatinine Glucose 158 H POC Glucose Hemoglobin A1c Lactic Acid Calcium AST ALT NT-Pro-B Natriuret Pep Total Protein 5.8 L Albumin 3.4 L Urine pH Urine WBC (Auto) Urine Creatinine 112.2 H Urine Microalbumin 54.7 H Rheumatoid Factor 11/08/19 11/08/19 11/08/19 07:58 11:56 16:48 WBC RBC Hgb Hct Plt Count Lymph # Seg Neutrophils % Seg Neuts % (Manual) Lymphocytes % (Manual) Nucleated RBC % Lymphocytes # (Manual) POC ABG pH POC ABG pCO2 POC ABG pO2 Sodium Potassium Chloride Carbon Dioxide BUN Creatinine Glucose POC Glucose 213 H 137 H 246 H Hemoglobin A1c Lactic Acid Calcium AST ALT NT-Pro-B Natriuret Pep Total Protein Albumin Urine pH Urine WBC (Auto) Urine Creatinine Urine Microalbumin Rheumatoid Factor 11/08/19 21:51 WBC RBC Hgb Hct Plt Count Lymph # Seg Neutrophils % Seg Neuts % (Manual) Lymphocytes % (Manual) Nucleated RBC % Lymphocytes # (Manual) POC ABG pH POC ABG pCO2 POC ABG pO2 Sodium Potassium Chloride Carbon Dioxide BUN Creatinine Glucose POC Glucose 203 H Hemoglobin A1c Lactic Acid Calcium AST ALT NT-Pro-B Natriuret Pep Total Protein Albumin Urine pH Urine WBC (Auto) Urine Creatinine Urine Microalbumin Rheumatoid Factor Chest x-ray: report reviewed, image reviewed
[2019-11-09] MEDS: methylPREDNISolone Sod Succinate 40 MG/1 ML INJ IV SCH ×2 (05:02→14:43)
[2019-11-09] MEDS: BENZONATATE 100 MG CAP PO SCH ×2 (05:02→14:44)
[2019-11-09] MEDS: IPRATROPIUM/ALBUTEROL SULFATE 3 ML AMPUL.NEB IH SCH ×2 (07:47→13:48)
[2019-11-09] MEDS: INSULIN LISPRO 100 UNIT/ML SUB-Q SCH (08:17)
[2019-11-09 08:42] LABS: Hematocrit 41.2 % (30.3-42.9); Hemoglobin 13.6 gm/dl (10.1-14.3); Mean Corpuscular HGB Conc 33 % (30-34); Mean Corpuscular Volume 92 fl (79-97); Platelet Count 247 K/mm3 (140-440); Red Blood Count 4.48 M/mm3 (3.65-5.03); Red Cell Distribution Width 13.6 % (13.2-15.2)
[2019-11-09 09:02] LABS: Alanine Aminotransferase 48 units/L (7-56); Albumin 3.3 g/dL (3.9-5); BUN/Creatinine Ratio 48; Blood Urea Nitrogen 24 mg/dL (7-17); Calcium 8.6 mg/dL (8.4-10.2); Hemolysis Index 9
--- NOTE | 2019-11-09 10:24 | Discharge Summary ---
Providers - Providers Date of Admission: 10/30/19 19:19 Date of discharge: 11/09/19 Attending physician: LEISA PONCE 11/01/19 10:44 Occupational Therapy Evaluate and Treat [CONS] Routine Comment: Reason For Exam: ataxia Physical Therapy Evaluation and Treat [CONS] Routine Comment: Reason For Exam: ataxia 11/02/19 08:14 Consult to Physician [CONS] Routine Comment: Consulting Provider: ESME CHINO Physician Instructions: Reason For Exam: Respiratory failure [facility] Reason for admission: acute respiratory failure Condition: Critical Pertinent studies: CTA scan of the chest shows extensive lung disease with no evidence of primary embolism. Multiple regularity in the long that was noted that was more chronic lung disease process pulmonary carcinomatosis. CT abdomen and pelvis that showed persistent lung disease with small stones in the gallbladder with no evidence of cholecystitis. Procedures: none Hospital course: 64 YO Female with Nicotine Dependence presents to ED for evaluation. Pt is confused, with shaking chills, and provides minimal history. Pt history provided by who is at bedside during exam and interview. As per , the patient has experienced "flu like symptoms" over the past 3 days with worsening symptoms over the same time frame. Pt acknowledges fever, shaking chills, fatigue, nonproductive cough, runny nose, and "not having any energy". Pt states that she feels to weak to stand independently. Pt acknowledges suspected flu exposure. Pt denies receiving flu shot this year. EMS notified, and upon arrival the patient was found to be in distress and transported to [facility]. Pt seen and evaluated in ED and found to be confused with Encephalopathy, and ill appearing. Pt found to have SIRS, UTI, Acidosis, and ESTELLE. Pt admitted to medical floor and initiated on IV antibiotic therapy and IVF resuscitation therapy. No reports of CP, Palpitations, Trauma, BRBPR, Skin Rash, Ingestion of food/water from new/different sources, neck pain, or recent ill contacts. No medication listed at time of admission for reconciliation. Patient was commenced on bronchodilators. Pulmonology consult was obtained. High doses of steroids was also commenced as well as azithromycin. Patient became altered it is in mental status. CT scan of the brain was unremarkable. Patient continued to be managed with IV antibiotic bronchodilators and high flow supplemental oxygen. She was subsequently weaned off to nasal cannula and was a prothrombin on the floor without oxygen with saturation in the up in the mid 90s. She's being discharged today to follow up with primary care physician and card grader. She's been advised that she needs follow-up with card grader in 1 week for possible lung biopsy because of the possibility of chronic intestinal lung disease. She is to follow-up with her primary care physician in 3-5 days. Condition on detail was satisfactory Disposition: [id number] TO HOME OR SELFCARE Time spent for discharge: 40 min - Discharge Diagnoses (1) Acute respiratory failure with hypoxia Status: Acute (2) Interstitial lung disease Status: Acute (3) ESTELLE (acute kidney injury) Status: Acute (4) Dehydration Status: Acute (5) Elevated LFTs Status: Acute (6) Sepsis Status: Acute (7) Pneumonia Status: Acute Qualifiers: Pneumonia type: due to unspecified organism Laterality: unspecified laterality Lung location: unspecified part of lung Qualified Code(s): J18.9 - Pneumonia, unspecified organism (8) UTI (urinary tract infection) Status: Acute Qualifiers: Urinary tract infection type: acute cystitis Hematuria presence: with hematuria Qualified Code(s): N30.01 - Acute cystitis with hematuria Core Measure Documentation - Palliative Care Palliative Care/ Comfort Measures: Not Applicable - Core Measures Any of the following diagnoses?: none Exam - Physical Exam Narrative exam: Constitutional: Well-nourished well-developed. In no distress. On o2 vis N/C. Off high flow oxygen Head: Normocephalic atraumatic Eyes: Pupils are equal round and reactive to light Nose: No enlarged turbinates, no septal deviation. Mouth: Moist mucous membranes. Neck: Supple no thyromegaly. No bruit. No JVD Heart: Regular rate and rhythm, S1-S2 normal. No rubs murmurs or gallop Lungs: Decreased breath sounds bilaterally to auscultation bilaterally. no rales or rhonchi Abdomen: Soft, nontender. Bowel sound are present. Extremities: No edema, no cyanosis, no clubbing. Neuro: Alert oriented Oriented x3. No focal sensory or motor deficit. Skin: No rashes or hyperpigmented spots Musculoskeletal system: No joint pain or swelling Hematological: No petechia or subcutanous hemorrhages. Immunological: No multiple septic spots on the skin Lymphatic: No generalized lymphadenopathy Psychiatry: Euthymic. Calm. - Constitutional Vitals: Temp Pulse Resp BP Pulse Ox 98.2 F 58 L 20 151/82 92 11/09/19 05:38 11/09/19 05:38 11/09/19 05:38 11/09/19 05:38 11/09/19 09:12 Plan Activity: fall precautions Weight Bearing Status: Non-Weight Bearing Diet: diabetic [facility] [Primary Care Provider] - 3-5 Days ESME CHINO MD [Staff Physician] - 7 Days Prescriptions: Ipratropium/Albuterol Sulfate [DUONEB *Not for PRN Use*] 1 ampul IH TIDRT #100 ampul.neb ALBUTEROL NEB's [Proventil 0.083% NEBS] 2.5 mg IH Q4HRT PRN #100 nebu PRN Reason: Shortness Of Breath QUEtiapine [SEROquel] 50 mg PO QHS #30 tablet Benzonatate [Tessalon Perles] 100 mg PO Q8HR #60 capsule Azithromycin [Zithromax TAB] 500 mg PO QDAY #5 tablet
[2019-11-09 11:23] LABS: Band Neutrophils # (Manual) 0.3 K/mm3; Basophils % (Manual) 0 % (0.0-1.8); Eosinophils % (Manual) 0 % (0.0-4.3); Macrocytosis Few; Myelocytes # (Manual) 0.2 K/mm3; Platelet Estimate Consistent w Auto; Total Cells Counted 100
[2019-11-09 12:22] VITALS: BP 131/75
== END 2019-11-09 14:00 | disposition home or self-care (01) | DRG 871 ==
LOC: ED 13:06 → 3A 19:19
PROVIDERS: ADMIT Internal Medicine; ATTEND Family Medicine
PROC: 3E0234Z Introduction of Serum, Toxoid and Vaccine into Muscle, Percutaneous Approach (ICD-10-PCS; principal; 2019-11-01)
PROC: 5A09357 Assistance with Respiratory Ventilation, Less than 24 Consecutive Hours, Continuous Positive Airway Pressure (ICD-10-PCS; 2019-11-01)
PROC: 4A033R1 Measurement of Arterial Saturation, Peripheral, Percutaneous Approach (ICD-10-PCS; 2019-11-02)
DX: A41.9 Sepsis, unspecified organism (principal); J96.01 Acute respiratory failure with hypoxia; J18.9 Pneumonia, unspecified organism; N17.0 Acute kidney failure with tubular necrosis; G93.41 Metabolic encephalopathy; F17.210 Nicotine dependence, cigarettes, uncomplicated; E86.0 Dehydration; N30.01 Acute cystitis with hematuria; D69.6 Thrombocytopenia, unspecified; R73.9 Hyperglycemia, unspecified; F17.213 Nicotine dependence, cigarettes, with withdrawal; E87.1 Hypo-osmolality and hyponatremia; T38.0X5A Adverse effect of glucocorticoids and synthetic analogues, initial encounter; E87.2 Acidosis; E87.6 Hypokalemia; Z83.3 Family history of diabetes mellitus; Z80.0 Family history of malignant neoplasm of digestive organs; Z82.49 Family history of ischemic heart disease and other diseases of the circulatory system; Z23 Encounter for immunization; Y92.89 Other specified places as the place of occurrence of the external cause
CPT/HCPCS: 36415; 36600; 70450; 71045; 71275; 74176; 80048; 80053; 80076; 80202; 80307; 80320; 81001; 82043; 82140; 82803; 82962; 83036; 83880; 85007; 85025; 85027; 85652; 86038; 86235; 86618; 87040; 87086; 87116; 87400; 87430; 87449; 90686; 90732; 94640; 94760; 96365; 96366; 96367; 96372; G0378; G0480; J0692; J1644; J1815; J1940; J2920; J2930; J3370; J3475; J3480; J7030; J7050; Q9967